=== PATIENT | female | born 1990 | race African-American/Black ===

== ENCOUNTER 2016-12-01 09:16 | Day surgery (SDC) | payer OTHER ==
[2016-11-25 11:18] VITALS: BMI 39.4
--- NOTE | 2016-11-29 15:58 | HP ---
Admitting History and Physical - Primary Care Physician PCP: Alaina Cornell - Admission Chief Complaint: Left breast abscess History of Present Illness: 26 year old nulliparous female recurrent left breast abscess. She was admitted to [facility]. She declined I and D. and the abscess drained spontaneously. She was discharge home on oral antibiotics. She is diabetic. History Source: Patient Limitations to Obtaining History: No Limitations - Past Medical History Pulmonary: Yes: Asthma ...LMP: 11/05/16 ...LMP Comment: 11/05/15 ...: No Endocrine: Yes: Diabetes Mellitus - Past Surgical History Additional Past Surgical History: Mutiple I and D D and C - Smoking History Smoking history: Never smoked Have you smoked in the past 12 months: No - Alcohol/Substance Use Hx Alcohol Use: No Home Medications - Allergies Allergies/Adverse Reactions: Allergies Allergy/AdvReac Type Severity Reaction Status Date / Time Penicillins Allergy Severe RESPIRATORY Verified 11/25/16 11:19 DISTRESS piperacillin sodium AdvReac Severe Difficulty Verified 11/22/16 13:30 [From Zosyn] Breathing tazobactam sodium AdvReac Severe Difficulty Verified 11/22/16 13:30 [From Zosyn] Breathing - Home Medications Home Medications: Ambulatory Orders Insulin Sliding Scale [Novolog Vial Sliding Scale -] 1 vial SQ TIDAC #100 units 05/23/16 Insulin (Levemir) [Levemir Vial] 20 unit SQ HS #0 11/10/16 Family Disease History - Family Disease History Family Disease History: Diabetes: Grandparent (Breast ca 70), Mother Physical Examination Constitutional: Yes: Well Nourished, No Distress Breast(s): Yes: Other (Letf breast small closed wound in imframmary crease no drainage or erythema) Problem List - Problems (1) Abscess of breast Code(s): N61 - INFLAMMATORY DISORDERS OF BREAST * DO NOT USE * Assessment/Plan Incision and drainage and debridement left breast
[2016-12-01] MEDS ORDERED: LIDOCAINE HCL 1%, 10 MG/ML (20ML VIAL) ONE (10:33)
[2016-12-01] MEDS ORDERED: PROPOFOL 20 ML ONE (10:53)
[2016-12-01] MEDS ORDERED: MIDAZOLAM HCL 2 MG/2 ML SINGLE DOSE VIAL ONE (10:53)
[2016-12-01] MEDS ORDERED: LIDOCAINE HCL/PF 2% SDV 5ML VIAL ONE (10:54)
[2016-12-01] MEDS ORDERED: ONDANSETRON 4 MG/2 ML VIAL IVPB PRN (11:04)
[2016-12-01] MEDS ORDERED: KETOROLAC TROMETHAMINE 30 MG/1 ML VIAL IVPUSH PRN (11:04)
[2016-12-01] MEDS ORDERED: DEXTROSE 5%-0.45% SALINE 1,000 ML IV SCH (11:15)
[2016-12-01] MEDS ORDERED: SUCCINYLCHOLINE CHLORIDE 200 MG/10 ML VIAL ONE (11:19)
[2016-12-01] MEDS ORDERED: ROCURONIUM BROMIDE 50 MG/5 ML VIAL ONE (11:19)
[2016-12-01] MEDS ORDERED: CLINDAMYCIN PHOSPHATE 600 MG/4 ML VIAL ONE (11:30)
[2016-12-01] MEDS ORDERED: DEXAMETHASONE SOD PHOSPHATE 4 MG/1 ML VIAL ONE (11:33)
[2016-12-01] MEDS ORDERED: LIDOCAINE HCL 1%, 10 MG/ML (20ML VIAL) IJ ONE (11:45)
[2016-12-01] MEDS ORDERED: ALBUTEROL SO4 0.083% IH SOL 2.5 MG/3 ML VIAL.NEB. NEB PRN (12:05)
[2016-12-01] MEDS ORDERED: LACTATED RINGERS SOLUTION 1,000 ML IV SCH (12:15)
[2016-12-01] MEDS ORDERED: INSULIN REGULAR HUMAN 100 UNITS/ML *VIAL SQ ONE (12:54)
[2016-12-01] MEDS ORDERED: PROMETHAZINE HCL 25 MG/1 ML VIAL IVPUSH PRN (13:18)
[2016-12-01] MEDS ORDERED: ONDANSETRON 4 MG/2 ML VIAL IVPUSH PRN (13:18)
[2016-12-01 14:36] VITALS: TEMP 98.7
[2016-12-01 14:42] VITALS: BP 116/67; PULSE 86
--- NOTE | 2016-12-01 17:03 | OP ---
DATE OF OPERATION: 12/01/2016 PREOPERATIVE DIAGNOSIS: Left breast abscess. POSTOPERATIVE DIAGNOSIS: Left breast abscess. PROCEDURE: Incision and debridement of left breast abscess. SURGEON: Luca Corenll M.D. WASH WORKER: None. ANESTHESIA: General. SPECIMEN: Wound culture. ESTIMATED BLOOD LOSS: Minimal. INDICATION FOR PROCEDURE: The patient is a 26-year-old female with a history of diabetes. She has had multiple incision and drainages of a left breast abscess at the inframammary crease. The patient has had recurrences within the last couple of months of the abscess but has refused incision and drainage due to discomfort. She is going to the operating room for incision and debridement of the inflammatory tissue to allow for better wound care. PROCEDURE: The patient was identified in the holding area. Informed consent was obtained. She was taken to the operating room and placed on the operating table in the supine position. She received clindamycin prior to surgery. She was intubated. The left breast was prepped and draped in the usual fashion. Examination of the left breast showed a wound at the inframammary crease which was partially closed. This wound was opened, and a 1-cm deep cavity was identified. There was a small amount of purulent drainage at the opening, but the wound was mostly clean. There was some granulation tissue in the wound which was debrided. This tissue was friable. The bleeding was controlled with electrocautery. A wound culture was sent upon opening the wound. The wound was irrigated. The wound was packed with half inch iodoform packing. A gauze dressing was applied. The patient tolerated the procedure well. At the end of the procedure, all sponge and instrument counts were correct. She was awakened and taken to the recovery area in satisfactory condition. LUCA CORNELL M.D. [id number] [email or web address]
== END 2016-12-01 14:44 | disposition home or self-care (01) ==
LOC: FASU 09:16
PROVIDERS: ATTEND Surgery
PROC: 0H9U0ZX Drainage of Left Breast, Open Approach, Diagnostic (ICD-10-PCS; principal; 2016-12-01 11:35)
DX: N61.1 Abscess of the breast and nipple (principal)
CPT/HCPCS: 84703; 87070; 87186; 87205; 94760

== ENCOUNTER 2016-12-27 12:28 | Emergency (ER) | payer OTHER ==
[2016-12-27 12:48] VITALS: BMI 39.4
[2016-12-27] MEDS ORDERED: SODIUM CHLORIDE 1,000 ML IV STA (13:42)
[2016-12-27] MEDS ORDERED: morphine CARPU-JECT 2 MG/1 ML DISP.SYRIN IVPUSH ONE ×2 (13:45→17:51)
--- NOTE | 2016-12-27 14:13 | PDOC ---
History of Present Illness - General Chief Complaint: Abscess Boil Stated Complaint: NECK PAIN Time Seen by Provider: 12/27/16 12:58 History Source: Patient Exam Limitations: No Limitations - History of Present Illness Initial Comments: 12/27/16 14:04 26-year-old female presents to the ED with complaints of tenderness swelling and difficulty moving her neck secondary to a lump to the back of her left neck. Patient states has had this before and responded to surgical removal of cyst and antibiotics. Patient states recently had a cyst removed from her left breast by the breast surgeon 3 weeks ago and completed antibiotics postoperatively. Patient denies fever, chills, headache, nausea but states has difficulty with eating and moving her neck secondary to pain and swelling. Patient states his history of diabetes which he states was high yesterday and didn't give us up in since since she had no appetite to eat. Severity: moderate Associated Symptoms: reports: fever/chills Past History - Past Medical History Allergies/Adverse Reactions: Allergies Allergy/AdvReac Type Severity Reaction Status Date / Time Penicillins Allergy Severe RESPIRATORY Verified 12/27/16 12:44 DISTRESS piperacillin sodium AdvReac Severe Difficulty Verified 12/27/16 12:44 [From Zosyn] Breathing tazobactam sodium AdvReac Severe Difficulty Verified 12/27/16 12:44 [From Zosyn] Breathing Home Medications: Ambulatory Orders Insulin Sliding Scale [Novolog Vial Sliding Scale -] 1 vial SQ TIDAC #100 units 05/23/16 Insulin (Levemir) [Levemir Vial] 20 unit SQ HS #0 11/10/16 Clindamycin [Cleocin -] 300 mg PO TID #21 capsule 12/27/16 Anemia: No Asthma: Yes (DX CHILD-STABLE) Cancer: No Cardiac Disorders: No CVA: No COPD: No CHF: No Dementia: No Diabetes: Yes (INSULIN- DX 2007) GI Disorders: No Disorders: No HTN: No Hypercholesterolemia: No Liver Disease: No Seizures: No Thyroid Disease: No - Surgical History Abdominal Surgery: No Appendectomy: No Cardiac Surgery: No Cholecystectomy: No Lung Surgery: No Neurologic Surgery: No Orthopedic Surgery: No - Reproductive History LMP Normal: Yes Is Patient Now?: No - Immunization History Immunization Up to Date: Yes - Psycho/Social/Smoking Cessation Hx Anxiety: No Suicidal Ideation: No Smoking History: Never smoked Have you smoked in the past 12 months: No Information on smoking cessation initiated: No Hx Alcohol Use: No Drug/Substance Use Hx: No Substance Use Type: None Hx Substance Use Treatment: No Patient Lives Alone: No Lives with/in: parents Review of Systems - Review of Systems HEENTM: No: Symptoms Reported Respiratory: No: Symptoms reported Cardiac (ROS): No: Symptoms Reported ABD/GI: No: Symptoms Reported : No: Symptoms Reported Musculoskeletal: Yes: Neck Pain Integumentary: Yes: Erythema, Lumps Neurological: No: Symptoms reported Endocrine: No: Symptoms Reported Hematologic/Lymphatic: No: Symptoms Reported *Physical Exam - Vital Signs Last Vital Signs Temp Pulse Resp BP Pulse Ox 98.1 F 96 H 18 126/76 100 12/27/16 12:45 12/27/16 12:45 12/27/16 12:45 12/27/16 12:45 12/27/16 12:45 - Physical Exam General Appearance: Yes: Nourished, Appropriately Dressed. No: Apparent Distress HEENT: positive: EOMI, SAGAR, TMs Normal, Pharynx Normal. negative: Pale Conjunctivae Neck: positive: Tender (to left posterior nape of neck. Noted diffuse edema without palpable fluctulance or central induration), Trachea midline, Supple. negative: Lymphadenopathy (R), Lymphadenopathy (L) Respiratory/Chest: positive: Lungs Clear, Normal Breath Sounds. negative: Respiratory Distress, Accessory Muscle Use Cardiovascular: positive: Regular Rhythm, Regular Rate. negative: Murmur Gastrointestinal/Abdominal: positive: Soft. negative: Tenderness Extremity: positive: Normal Capillary Refill Integumentary: positive: Normal Color, Warm, Moist, Swelling (left posterior cervical region) Neurologic: positive: Motor Strength 5/5 (ambulatory ) ED Treatment Course - LABORATORY CBC & Chemistry Diagram: 12/27/16 13:46 12/27/16 13:46 Medical Decision Making - Medical Decision Making 12/27/16 14:19 Patient with history of diabetes presents with left cervical tenderness swelling and lump for the past few days. Patient states has had similar symptoms in the past requiring surgical excision and IV antibiotics. Patient states has history of abscesses to very aspects of her body over the years. Patient ordered for septic workup including acetone and Morphine for pain control. Patient ordered for urine and will need imaging 12/27/16 17:52 Laboratory Tests 12/27/16 12/27/16 14:30 15:56 Lactic Acid 1.105 Acetone, Qual Negative L 12/27/16 17:53 Laboratory Tests 12/27/16 12/27/16 12/27/16 13:46 13:46 13:46 WBC 11.0 H Hgb 12.2 Hct 38.5 MCV 69.5 L Plt Count 263 INR 1.03 VBG pH POC VBG pCO2 POC VBG pO2 Anion Gap 12 Creatinine 0.5 L Creat Clearance w eGFR > 60 Random Glucose 288 H AST 16 D ALT 21 Urine Glucose (UA) Urine Ketones Urine Nitrite Urine HCG, Qual Acetone, Qual 12/27/16 12/27/16 12/27/16 14:00 14:30 15:05 WBC Hgb Hct MCV Plt Count INR VBG pH 7.36 POC VBG pCO2 45.7 POC VBG pO2 43.3 H Anion Gap Creatinine Creat Clearance w eGFR Random Glucose AST ALT Urine Glucose (UA) 3+ H Urine Ketones Trace H Urine Nitrite Negative Urine HCG, Qual Acetone, Qual Negative L 12/27/16 15:05 WBC Hgb Hct MCV Plt Count INR VBG pH POC VBG pCO2 POC VBG pO2 Anion Gap Creatinine Creat Clearance w eGFR Random Glucose AST ALT Urine Glucose (UA) Urine Ketones Urine Nitrite Urine HCG, Qual Negative Acetone, Qual Awaiting results of CT. Patient requesting more pain control. Patient ordered for morphine. 12/27/16 18:29 CT shows a soft tissue swelling the left posterior upper neck with skin thickening and a 1.5 low attenuation density in the subcutaneous fat that is very suggestive of a small abscess. Patient will be given a dose of IV clindamycin and be discharged home with clindamycin to follow-up with Dr. Ceron. *DC/Admit/Observation/Transfer Diagnosis at time of Disposition: Abscess - Discharge Dispostion Disposition: HOME Condition at time of disposition: Good - Prescriptions Prescriptions: Clindamycin [Cleocin -] 300 mg PO TID #21 capsule - Referrals Referrals: Steven Luna MD [Primary Care Provider] - Xiang Ceron MD [Staff Physician] - - Patient Instructions Printed Discharge Instructions: DI for Skin Abscess Additional Instructions: please take antibiotics until completed. Please follow up with referred surgeon. Please return to ED if your symptoms worsen including redness tenderness, fever , or swelling.
[2016-12-27 14:18] LABS: VENOUS PH 7.36 (7.31-7.41)
[2016-12-27] MEDS ORDERED: morphine CARPU-JECT 4 MG/1 ML DISP.SYRIN ONE ×2 (14:18→17:55)
[2016-12-27 14:19] LABS: VENOUS BLOOD GAS HCO3 24.9 meq/L (22-29)
[2016-12-27 14:44] LABS: BASOPHIL 0.4 % (0-2.0); EOSINOPHIL 1.1 % (0-4.5); MCH 22.1 pg (25.7-33.7); MCHC 31.8 g/dl (32.0-36.0); MEAN CELL VOLUME 69.5 fl (80-96); MEAN PLT VOLUME 9.1 fl (7.5-11.1); NEUTROPHILS 55.8 % (42.8-82.8); PLATELET COUNT 263 K/MM3 (134-434); RDW 15.4 % (11.6-15.6)
[2016-12-27 14:56] LABS: INR 1.03 (0.82-1.09); PROTHROMBIN TIME (PATIENT) 11.3 SEC (9.98-11.88)
[2016-12-27 15:15] LABS: URINE APPEARANCE CLEAR; URINE BILIRUBIN NEGATIVE (NEGATIVE); URINE BLOOD NEGATIVE (NEGATIVE); URINE COLOR STRAW; URINE GLUCOSE (UA) 3+ (NEGATIVE); URINE KETONE TRACE (NEGATIVE); URINE LEUK ESTERASE NEGATIVE (NEGATIVE); URINE NITRITE NEGATIVE (NEGATIVE); URINE PROTEIN NEGATIVE (NEGATIVE); URINE UROBILINOGEN NEGATIVE E.U./dl (0.2-1.0)
[2016-12-27 15:16] LABS: ALBUMIN 3.8 g/dl (3.4-5.0); ALK PHOS 83 U/L (45-117); ANION GAP 12 (8-16); BILIRUBIN,TOTAL 0.3 mg/dL (0.2-1.0); CALCIUM 9.2 mg/dL (8.5-10.1); CO2 24 mmol/L (21-32); CREATININE 0.5 mg/dL (0.55-1.02); GLUCOSE,RANDOM 288 mg/dL (74-106); SGPT/ALT 21 U/L (12-78); TOT PROT 7.7 g/dl (6.4-8.2)
[2016-12-27 15:17] LABS: SGOT/AST 16 U/L (15-37)
[2016-12-27 18:25] LABS: HYPOCHROMIA 1+; MICROCYTOSIS 1+
[2016-12-27] MEDS ORDERED: CLINDAMYCIN IVPB 300 MG in DEXTROSE 5%-WATER - 48 ML IVPB ONE (18:28)
[2016-12-27 18:50] VITALS: BP 122/63; PULSE 88; TEMP 98.4
[2016-12-27] MEDS ORDERED: CLINDAMYCIN PHOSPHATE 600 MG/4 ML VIAL ONE (18:54)
== END 2016-12-27 19:41 | disposition home or self-care (01) ==
LOC: JER 12:28
PROC: 3E03329 Introduction of Other Anti-infective into Peripheral Vein, Percutaneous Approach (ICD-10-PCS; principal; 2016-12-27)
PROC: 3E033NZ Introduction of Analgesics, Hypnotics, Sedatives into Peripheral Vein, Percutaneous Approach (ICD-10-PCS; 2016-12-27)
PROC: 3E0337Z Introduction of Electrolytic and Water Balance Substance into Peripheral Vein, Percutaneous Approach (ICD-10-PCS; 2016-12-27)
DX: L02.11 Cutaneous abscess of neck (principal); E11.9 Type 2 diabetes mellitus without complications; Z79.4 Long term (current) use of insulin
CPT/HCPCS: 36415; 70491-TC; 80053; 81003; 82009; 82803; 83605; 84703; 85025; 85610; 86850; 86900; 86901; 87040; 87086; 96361; 96365; 96375; 96376; 99283-25

== ENCOUNTER 2019-03-07 21:07 | Inpatient (IN) | payer OTHER ==
--- NOTE | 2019-03-07 21:13 | PDOC ---
Attending Attestation - HPI HPI: The patient is a 28 year old female, with a significant PMH of seizure disorder (last episode was 2 months ago) asthma, IDDM, multiple abscesses, and obesity, who presents to the emergency department today BIBEMS s/p multiple seizures and altered mental status prior to arrival. As per EMS, patient had a total of 8 seizures and all were tonic clonic, jerking all extremities, without any tongue biting or urinary incontinence. They report that she was given 10 mg of versed and was postictal. Patient works at [employer], where her witnesses epileptic episodes occurred. She endorses a headache, cough, and chest discomfort at this time. Patient cannot recall if she took her daily medications this morning. As patients aunt (next of kin), she notes that she was on the phone with the patient ~1.5 hours ago, and at that time she was complaining of her heart speeding up and slowing down. Patient also told her aunt that she had a seizure the night before because she woke up with blood in her mouth and felt more tired than normal. The patient denies shortness of breath and dizziness. Denies fever, chills, nausea, vomit, diarrhea and constipation. Denies dysuria, frequency, urgency and hematuria. Allergies: Penicillin, piperacillin sodium, and tazobactam sodium Past surgical history: None reported Social history: No reported Neurologist: Dr. Viv Lynn Epilepsy meds- Levatracin 750 mg twice daily (last refilled on 02/24) 03/07/19 21:57 - Physicial Exam PE: GENERAL: +Arrives foaming at this mouth. +Postictal. HEAD: No signs of trauma EYES: +Pupils are 3 times reactive. EOMI, sclera anicteric, conjunctiva clear ENT: +No tongue biting. Auricles normal inspection, hearing grossly normal, nares patent, oropharynx clear without exudates. Moist mucosa NECK: Normal ROM, supple, no lymphadenopathy, JVD, or masses LUNGS: Breath sounds equal, clear to auscultation bilaterally. No wheezes, and no crackles HEART: Regular rate and rhythm, normal S1 and S2, no murmurs, rubs or gallops ABDOMEN: Soft, nontender, normoactive bowel sounds. No guarding, no rebound. No masses EXTREMITIES: Normal range of motion, no edema. No clubbing or cyanosis. No cords, erythema, or tenderness NEUROLOGICAL: Cranial nerves II through XII grossly intact. Normal speech, normal gait SKIN: Warm, Dry, normal turgor, no rashes or lesions noted. 03/07/19 21:57 - Medical Decision Making EXAM#: TYPE/EXAM: RESULT: [id number] RAD/CHEST X-RAY PORTABLE* Shortness of breath structures appear intact Impression: Minimal bibasal atelectatic changes without evidence of focal infiltrates Reported By: Bertha Guevara MD 03/07/19 22:53 EXAM#: TYPE/EXAM: RESULT: [id number] CT/HEAD CT WITHOUT CONTRAST History of seizures Impression: No evidence of a focal intracranial lesion or hemorrhage seen. Correlate to determine further evaluation and follow-up. Reported By: Bertha Guevara MD 03/07/19 23:03 Documentation prepared by MARCUS Wilde, acting as medical support assistant for Joie Naidu DO. 03/07/19 23:22 <Brooke Luna - Last Filed: 03/07/19 23:22> - Resident Resident Name: Marcus Henley - ED Attending Attestation I have performed the following: I have examined & evaluated the patient, The case was reviewed & discussed with the resident, I agree w/resident's findings & plan, Exceptions are as noted - Medical Decision Making 03/07/19 21:13 I, Dr. Joie Naidu DO, attest that this document has been prepared under my direction and personally reviewed by me in its entirety. I further attest, that it accurately reflects all work, treatment, procedures and medical decision -making performed by me. 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 -pt arrived post-ictal but follows commands -pt also with hx of iddm -stat labs sent -head ct ordered given multiple seizures today -pt denies falls -resident discussed the case with the next of kin who states pt also c/o having a seizure last night -does not follow with neuro -unknown if on AED -pt will need admission 03/07/19 22:56 elevated lactate most likley from seizure, will repeat cxr shows early pna- will start abx will add blood cultures keppra loaded 03/07/19 23:39 case discussed with hunter who accepts pt to service <Joie Naidu - Last Filed: 03/07/19 23:40> *DC/Admit/Observation/Transfer - Discharge Dispostion Decision to Admit order: Yes <Joie Naidu - Last Filed: 03/07/19 23:40> Diagnosis at time of Disposition: Convulsion disorder, Status epilepticus - Discharge Dispostion Condition at time of disposition: Guarded - Referrals Referrals: Panchito Butler MD [Staff Physician] - - Patient Instructions Printed Discharge Instructions: DI for Seizure Disorder -- Adult Additional Instructions: Please return to the emergency department with any new or worsening symptoms or concerns. Please follow up with your neurologist and primary care physician within 72 hours. Continue to take Keppra 1500 mg daily. - Post Discharge Activity Heart Score/ECG Review - ECG Intrepretation Comment:: 03/07/19 23:15 sinus at 86, nl axis, nl interval, no acute st/t wave findings <Joie Naidu - Last Filed: 03/07/19 23:40>
[2019-03-07 21:30] LABS: BASO % 0.8 % (0-2.0); EOS % 1.4 % (0-4.5); HEMATOCRIT 40.1 % (32.4-45.2); HEMOGLOBIN 12.7 GM/dL (10.7-15.3); LYMPH % 39.2 % (8-40); MCH 22.3 pg (25.7-33.7); MCHC 31.6 g/dl (32.0-36.0); MEAN CELL VOLUME 70.4 fl (80-96); MEAN PLT VOLUME 8.5 fl (7.5-11.1); MONO % 6.6 % (3.8-10.2); PLATELET COUNT 318 K/MM3 (134-434); RDW 15.6 % (11.6-15.6); VENOUS PC02 41.4 mmHg (41-51); VENOUS PH 7.4 (7.31-7.41); VENOUS PO2 58.8 mmHg (30-40); WHITE BLOOD COUNT 11.3 K/mm3 (4.0-10.0)
--- NOTE | 2019-03-07 21:37 | PDOC ---
History of Present Illness - General Stated Complaint: SEIZURE Time Seen by Provider: 03/07/19 21:09 - History of Present Illness Initial Comments: 03/07/19 21:32 28 yo F with h/o IDDM, morbid obesity, seizure disorder, and asthma BIBA with witnessed convulsions and AMS. Per EMS patient with 8 episodes of widespread tonic-clonic jerking movements of all four extremities, en route to hospital. EMS administered Versed 10 mg IM. Per patient Aunt ([place] [phone]) patient reported to her on phone that she was experiencing episodes of acute, frequent heart speeding up and slowing down, while at work "[employer]. " She also reports to aunt that she woke up this AM with blood in mouth. She believes she had seizure last night. Last seizure 2 months ago. Neurologist unknown. Patient reports she is on anticonvulsive medication ( Keppra 1500 mg QD ), and compliant with all daily meds. Viv Lynn prescribes patient Keppra. Patient reports ongoing cough, chest tightness per aunt. Patient poor historian , able to provide yes/no responses, but not providing adequate history. Patient does not recall falling, head trauma, LOC. Patient denies MORGAN, vision change, wheezing, orthopena, PND, leg swelling/pain, N /V, F,C, SOB, urinary complaints, hematuria, BPR, abdominal pain, diarrhea, constipation, lightheadedness, sensory changes. PMHx: as noted above. Denies h/o ICU admission. ROS: as noted SHx: Betty Etoh, tobacco use, IVDA Allergies: PDN, Zosyn Past History - Past Medical History Allergies/Adverse Reactions: Allergies Allergy/AdvReac Type Severity Reaction Status Date / Time Penicillins Allergy Severe RESPIRATORY Verified 12/29/16 09:44 DISTRESS piperacillin sodium AdvReac Severe Difficulty Verified 12/29/16 09:44 [From Zosyn] Breathing tazobactam sodium AdvReac Severe Difficulty Verified 12/29/16 09:44 [From Zosyn] Breathing Home Medications: Ambulatory Orders Insulin (Novolog) [Novolog] 10 units SQ BID 03/08/19 Insulin Detemir [Levemir Flextouch] 10 unit SQ HS #1 vial 03/08/19 Metformin HCl [Metformin HCl ER] 1,000 mg PO BID 03/08/19 levETIRAcetam [Keppra -] 1,500 mg PO Q12H 30 Days #180 tablet 03/08/19 Anemia: No Asthma: Yes (DX CHILD-STABLE) Cancer: No Cardiac Disorders: No CVA: No COPD: No CHF: No Dementia: No Diabetes: Yes (INSULIN- DX 2007) GI Disorders: No Disorders: No HTN: No Hypercholesterolemia: No Liver Disease: No Seizures: No Thyroid Disease: No - Surgical History Abdominal Surgery: No Appendectomy: No Cardiac Surgery: No Cholecystectomy: No Lung Surgery: No Neurologic Surgery: No Orthopedic Surgery: No - Immunization History Immunization Up to Date: Yes (NO FLU) - Suicide/Smoking/Psychosocial Hx Smoking History: Never smoked Have you smoked in the past 12 months: No Hx Alcohol Use: No Drug/Substance Use Hx: No Substance Use Type: None Hx Substance Use Treatment: No Review of Systems - Review of Systems Comments:: 03/07/19 21:55 GENERAL/CONSTITUTIONAL: No fever or chills. No weakness. HEAD, EYES, EARS, NOSE AND THROAT: No change in vision. No ear pain or discharge. No sore throat. CARDIOVASCULAR: No shortness of breath RESPIRATORY:+cough. No wheezing, or hemoptysis. GASTROINTESTINAL: No nausea, vomiting, diarrhea or constipation. GENITOURINARY: No dysuria, frequency, or change in urination. MUSCULOSKELETAL: No joint or muscle swelling or pain. No neck or back pain. SKIN: No rash NEUROLOGIC: + Convulsions. No headache, vertigo, loss of consciousness, or change in strength/sensation. ENDOCRINE: No increased thirst. No abnormal weight change HEMATOLOGIC/LYMPHATIC: No anemia, easy bleeding, or history of blood clots. ALLERGIC/IMMUNOLOGIC: No hives or skin allergy. *Physical Exam - Physical Exam Comments: 03/07/19 22:05 GENERAL: + fatigued, able to follow commands, verbal, awake, alert, and fully oriented, in no acute distress. HEAD: No signs of trauma, normocephalic, atraumatic EYES: PERRLA, EOMI, sclera anicteric, conjunctiva clear ENT: Auricles normal inspection, hearing grossly normal, nares patent, oropharynx clear without exudates. Moist mucosa NECK: Normal ROM, supple, no lymphadenopathy, JVD, or masses LUNGS: No distress, speaks full sentences, clear to auscultation bilaterally HEART: Regular rate and rhythm, normal S1 and S2, no murmurs, rubs or gallops, peripheral pulses normal and equal bilaterally. ABDOMEN: Soft, nontender, normoactive bowel sounds. No guarding, no rebound. No masses EXTREMITIES : Normal inspection, Normal range of motion, no edema. No clubbing or cyanosis. NEUROLOGICAL: Cranial nerves II through XII grossly intact. Normal speech, normal gait, no focal sensorimotor deficits SKIN: Warm, Dry, normal turgor, no rashes or lesions noted ED Treatment Course - LABORATORY CBC & Chemistry Diagram: 03/08/19 05:15 03/08/19 05:15 Medical Decision Making - Medical Decision Making 03/07/19 21:55 28 yo F with h/o IDDM, morbid obesity, seizure disorder, and asthma BIBA with witnessed tonic-clonic convulsions x 8 and AMS. Vitals wnl, AF, A&Ox3. GCS 15. GLU~376 per EMS. Verbal, communicative. Vitals wnl, AF, A&Ox3. Neurologically intact. Patient on daily Keppra 1500 mg. Denies N/V, F,C, SOB, urinary complaints, hematuria, BPR, abdominal pain, diarrhea, constipation, lightheadedness, sensory changes. Will assess for cardiac dysarrythmias, hypoglycemia, electrolyte abnml, metabolic and toxic derangements, acid-base disturbances, infection. 03/07/19 22:15 Ed Course: Keppra 1000 mg, NS 2 L 03/07/19 22:35 WBC: 11.3 LA: 3.5 GLU: 306 03/07/19 22:57 Doxycyline 100mg 03/07/19 22:57 CXR: Bibasilar ateletcatic changes 03/07/19 23:12 CTH: Unremarkable 03/07/19 23:12 Plan to admit status epilepticus 03/07/19 23:15 EKG: NSR with absent NOEMI, STD. Nml interval duration and axis. Nml R wave progression. Absent Q waves. 03/07/19 23:41 Pt. endorsed and admitted to Dr. Purdy *DC/Admit/Observation/Transfer Diagnosis at time of Disposition: Convulsion disorder, Status epilepticus - Discharge Dispostion Disposition: HOME Condition at time of disposition: Stable Decision to Admit order: Yes - Referrals - Patient Instructions - Post Discharge Activity
[2019-03-07] MEDS ORDERED: SODIUM CHLORIDE 1,000 ML IV STA (21:39)
[2019-03-07] MEDS ORDERED: levETIRAcetam 500 MG/5 ML INJECTION VIAL IVPB ONE ×2 (21:40→21:47)
[2019-03-07 21:42] VITALS: BMI 36.6
[2019-03-07 21:44] LABS: INR 0.97 (0.83-1.09); PROTHROMBIN TIME (PATIENT) 11.5 SEC (9.7-13.0)
[2019-03-07 22:31] LABS: ALK PHOS 81 U/L (45-117); ANION GAP 10 MMOL/L (8-16); BILIRUBIN,TOTAL 0.3 mg/dL (0.2-1); BLOOD UREA NITROGEN 9 mg/dL (7-18); CALCIUM 9.4 mg/dL (8.5-10.1); CHLORIDE 101 mmol/L (98-107); CO2 25 mmol/L (21-32); CREATININE 0.7 mg/dL (0.55-1.3); MAGNESIUM 2.2 mg/dL (1.8-2.4); POTASSIUM 4.3 mmol/L (3.5-5.1); SGOT/AST 13 U/L (15-37); SGPT/ALT 24 U/L (13-61); SODIUM 136 mmol/L (136-145); TOT PROT 8.1 g/dl (6.4-8.2)
[2019-03-07 22:35] LABS: GLUCOSE,RANDOM 302 mg/dL (74-106)
[2019-03-07] MEDS ORDERED: DOXYCYCLINE INJECTION 100 MG in DEXTROSE 5%-WATER - 100 ML IVPB ONE (22:56)
[2019-03-07 22:58] LABS: ACETONE SERUM NEGATIVE (NEGATIVE)
--- NOTE | 2019-03-08 00:10 | HP ---
CHIEF COMPLAINT: seizures PCP: HISTORY OF PRESENT ILLNESS: Patient is a 28 y/o F w/ PMHx IDDM, morbid obesity, Sz disorder, asthma, BIBEMS w/ 8 witnessed tonic-clonic episodes. Reportedly Pt feared she may have been seizing overnight as well, told family member she awoke with blood in her mouth 2/2 tongue biting. Received 10mg Versed in field which broke seizures. Patient was post-ictal on presentation, lethargic but arousable, no recall of above events and not able to provide further history. Mildly photosensitive with mild headache, otherwise no complaints at time of encounter. Takes Keppra 1500 daily and reportedly compliant. Received loading dose Keppra, 1LNS, doxycycline for concern of aspiration in ED. Keppra level was not drawn. On presentation vitals are stable. EKG NSR. Labs significant for WBC 11.3, glucose 302, lactic acid 3.5 , otherwise wnl. Head CT negative, CXR showing bibasilar atelectasis w/o focal infiltrates ER course was notable for: (1) mild leukocytosis, hyperglycemia, lactic acidosis (2) Head CT negative (3) loading dose Keppra Recent Travel: PAST MEDICAL HISTORY: As per HPI PAST SURGICAL HISTORY: Social History: Smoking: Alcohol: Drugs: Family History: Allergies Penicillins Allergy (Severe, Verified 12/29/16 09:44) RESPIRATORY DISTRESS piperacillin sodium [From Zosyn] Adverse Reaction (Severe, Verified 12/29/16 09: 44) Difficulty Breathing ANAPHYLACTIC SHOCK tazobactam sodium [From Zosyn] Adverse Reaction (Severe, Verified 12/29/16 09:44 ) Difficulty Breathing ANAPHYLACTIC SHOCK HOME MEDICATIONS: Home Medications Medication Instructions Recorded Insulin Sliding Scale [Novolog 1 vial SQ TIDAC #100 units 05/23/16 Vial Sliding Scale -] Clindamycin [Cleocin -] 300 mg PO Q6HPO #25 capsule 01/03/17 Insulin (Levemir) [Levemir Vial] 18 units SQ ACBK #10 ml 01/03/17 Insulin (Levemir) [Levemir Vial] 24 units SQ HS #10 ml 01/03/17 REVIEW OF SYSTEMS As per HPI PHYSICAL EXAMINATION Vital Signs - 24 hr 03/07/19 21:08 Temperature 98.5 F Pulse Rate 88 Respiratory 19 Rate Blood Pressure 114/76 O2 Sat by Pulse 100 Oximetry (%) GENERAL: Lethargic, arousable, fully oriented, no recall of inciting events HEENT: NC/AT, EOMI, PERRLA, MMM, anicteric NECK: Normal range of motion, supple without lymphadenopathy, JVD, or masses. LUNGS: CTA b/l HEART: RRR no m/r/g ABDOMEN: +bs, soft, NT, ND, obese UPPER EXTREMITIES: 2+ pulses, warm, well-perfused. No cyanosis. No clubbing. No peripheral edema. LOWER EXTREMITIES: 2+ pulses, warm, well-perfused. No calf tenderness. No peripheral edema. 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 Laboratory Results - last 24 hr 03/07/19 03/07/19 03/07/19 21:17 21:17 21:17 WBC 11.3 H RBC 5.70 H Hgb 12.7 Hct 40.1 MCV 70.4 L MCH 22.3 L MCHC 31.6 L RDW 15.6 Plt Count 318 MPV 8.5 Absolute Neuts (auto) 5.9 Neutrophils % 52.0 Lymphocytes % 39.2 D Monocytes % 6.6 Eosinophils % 1.4 Basophils % 0.8 Nucleated RBC % 0 PT with INR INR PTT (Actin FS) 32.0 VBG pH 7.40 POC VBG pCO2 41.4 POC VBG pO2 58.8 H VBG HCO3 24.8 VBG O2 Sat (Delmy) 89.6 H VBG Base Excess 0.4 Sodium Potassium Chloride Carbon Dioxide Anion Gap BUN Creatinine Creat Clearance w eGFR POC Glucometer Random Glucose Lactic Acid Calcium Magnesium Total Bilirubin AST ALT Alkaline Phosphatase Creatine Kinase Creatine Kinase Index CK-MB (CK-2) Troponin I Total Protein Albumin TSH Serum , Qual Acetone, Qual 03/07/19 03/07/19 03/07/19 21:17 21:17 21:17 WBC RBC Hgb Hct MCV MCH MCHC RDW Plt Count MPV Absolute Neuts (auto) Neutrophils % Lymphocytes % Monocytes % Eosinophils % Basophils % Nucleated RBC % PT with INR 11.50 INR 0.97 PTT (Actin FS) VBG pH POC VBG pCO2 POC VBG pO2 VBG HCO3 VBG O2 Sat (Delmy) VBG Base Excess Sodium 136 Potassium 4.3 Chloride 101 Carbon Dioxide 25 Anion Gap 10 BUN 9 Creatinine 0.7 Creat Clearance w eGFR 99.64 POC Glucometer Random Glucose 302 H* Lactic Acid 3.5 H* Calcium 9.4 Magnesium 2.2 Total Bilirubin 0.3 AST 13 L ALT 24 Alkaline Phosphatase 81 Creatine Kinase 156 Creatine Kinase Index 0.8 CK-MB (CK-2) 1.4 Troponin I < 0.02 Total Protein 8.1 Albumin 4.0 TSH 1.98 Serum , Qual Acetone, Qual Negative L 03/07/19 03/07/19 21:17 21:30 WBC RBC Hgb Hct MCV MCH MCHC RDW Plt Count MPV Absolute Neuts (auto) Neutrophils % Lymphocytes % Monocytes % Eosinophils % Basophils % Nucleated RBC % PT with INR INR PTT (Actin FS) VBG pH POC VBG pCO2 POC VBG pO2 VBG HCO3 VBG O2 Sat (Delmy) VBG Base Excess Sodium Potassium Chloride Carbon Dioxide Anion Gap BUN Creatinine Creat Clearance w eGFR POC Glucometer 306 Random Glucose Lactic Acid Calcium Magnesium Total Bilirubin AST ALT Alkaline Phosphatase Creatine Kinase Creatine Kinase Index CK-MB (CK-2) Troponin I Total Protein Albumin TSH Serum , Qual Negative Acetone, Qual ASSESSMENT/PLAN: 28 y/o F w/ PMHx IDDM, morbid obesity, Sz disorder, asthma, BIBEMS w/ 8 witnessed tonic-clonic episodes. Post-ictal on presentation. A: -seizure disorder w/ apparent breakthrough seizures -possible aspiration event -IDDM -asthma P: -HCT negative -lactic acidosis and hyperglycemia likely reactive -repeat lactic acid and follow BMP, Mg, Phos -neurology consulted -received loading dose Keppra, initial Keppra level is unobtainable -restarted home Keppra for AM -BGM, SSI -no further ABx at this time -NPO while post-ictal -no further IVF -Lovenox sq for DVT PPx -full code -admit to med/surg Visit type - Emergency Visit Emergency Visit: Yes Care time: The patient presented to the Emergency Department on the above date and was hospitalized for further evaluation of their emergent condition. - New Patient This patient is new to me today: Yes Date on this admission: 03/08/19 - Critical Care Critical Care patient: No
--- NOTE | 2019-03-08 01:19 | PN ---
Teaching Attending Note Name of Resident: Tony Villanueva ATTENDING PHYSICIAN STATEMENT I saw and evaluated the patient. I reviewed the resident's note and discussed the case with the resident. I agree with the resident's findings and plan as documented. SUBJECTIVE: Patient is a 28 year old woman with a PMH of seizure disorder (last episode was 2 months ago) asthma, IDDM, penicillin allergy, multiple abscesses, and obesity , who presents to the emergency department today BIBEMS s/p multiple seizures and altered mental status prior to arrival. As per EMS, patient had a total of 8 seizures and all were tonic clonic, jerking all extremities, without any tongue biting or urinary incontinence. They report that she was given 10 mg of versed and was postictal. Patient works at [employer], where her witnesses epileptic episodes occurred. She endorses a headache, cough, and chest discomfort at this time. Patient cannot recall if she took her daily medications this morning. As patients aunt (next of kin), she notes that she was on the phone with the patient ~1.5 hours ago, and at that time she was complaining of her heart speeding up and slowing down. Patient also told her aunt that she had a seizure the night before because she woke up with blood in her mouth and felt more tired than normal. The patient denies shortness of breath and dizziness. Denies fever, chills, nausea, vomit, diarrhea and constipation. Denies dysuria, frequency, urgency and hematuria. OBJECTIVE: Postictal. Somnolent but arousable Vital Signs Period Temp Pulse Resp BP Sys/Westfall Pulse Ox Last 24 Hr 98.5 F 88 19 114/76 100 HEENT: No Jaundice, eye redness or discharge, PERRLA, EOMI. Normocephalic, atraumatic. External ears are normal and hearing is grossly intact. No nasal discharge. Neck: Supple, nontender. No palpable adenopathy or thyromegaly. No JVD Chest: Good effort. Clear to auscultation and percussion. Heart: Regular. No S3, rub or murmur Abdomen: Not distended, soft, nontender and no HSM. No rebound or guarding. Normal bowel sounds. Ext: Peripheral pulses intact. No leg edema. Skin: Warm and dry. No petechiae, rash or ecchymosis. Neuro: Alert. Oriented x3. CN 2-12 grossly intact. Sensation grossly intact in all four extremities and DTR are symmetric. Psych: Appropriate mood and affect. Good insight. Current Medications Generic Name Dose Route Start Last Admin Trade Name Mallory PRN Reason Stop Dose Admin Enoxaparin Sodium 40 mg 03/08/19 10:00 Lovenox - SQ DAILY [facility] Insulin Aspart 1 vial 03/08/19 07:00 Novolog Vial Sliding Scale - SQ ACHS [facility] Protocol Levetiracetam 750 mg 03/08/19 10:00 Keppra Xr - PO BID [facility] Home Medications Medication Instructions Recorded Insulin Sliding Scale [Novolog 1 vial SQ TIDAC #100 units 05/23/16 Vial Sliding Scale -] Insulin Glargine,Hum.rec.anlog 30 unit SQ AM 03/08/19 [Lantus] Levetiracetam [Keppra Xr] 750 mg PO BID 03/08/19 Metformin HCl [Metformin HCl ER] 1,000 mg PO BID 03/08/19 Abnormal Lab Results 03/07/19 03/07/19 03/07/19 21:17 21:17 21:17 WBC 11.3 H RBC 5.70 H MCV 70.4 L MCH 22.3 L MCHC 31.6 L POC VBG pO2 58.8 H VBG O2 Sat (Delmy) 89.6 H Random Glucose 302 H* Lactic Acid AST 13 L Acetone, Qual Negative L 03/07/19 21:17 WBC RBC MCV MCH MCHC POC VBG pO2 VBG O2 Sat (Delmy) Random Glucose Lactic Acid 3.5 H* AST Acetone, Qual ASSESSMENT AND PLAN: 1. Seizure disorder - No obvious precipitating factor. Leukocytosis likely due to stress. Unclear if Keppra level was therapeutic. Got 1 gm IV Keppra in the ER and will continue 750 po bid. Implement seizure, fall and aspiration precautions and do neurochecks. NPO until completely awake. Continue IV NS, trend lactic acid and repeat CBC. Minimal bibasilar atelectasis on CXR and no abnormality on head CT. Neurology consult. Get urine toxicology. 2. Uncontrolled DM Got IV insulin in ER. Will hold the home diabetes drugs and implement sliding scale insulin regimen. Provide comprehensive diabetes care with patient teaching and counseling about the importance of adherence to prescribed diabetes regimen, euglycemia, eye care and foot care. 3. Obesity Counseled on the risks associated with obesity. Will provide patient all the necessary assistance, counseling and positive reinforcement to facilitate weight loss. Consult flying instructor. 4. DVT prophylaxis - Lovenox 40 mg SQ q 24 hours. 5. Advance directives - Full code
[2019-03-08] MEDS ORDERED: SODIUM CHLORIDE 1,000 ML IV SCH (01:45)
[2019-03-08 04:22] LABS: PH,URINE 5.5 (5.0-8.0); URINE APPEARANCE Clear; URINE BILIRUBIN Negative (NEGATIVE); URINE COLOR Yellow; URINE GLUCOSE (UA) 2+ (NEGATIVE); URINE KETONE Trace (NEGATIVE); URINE LEUK ESTERASE Negative (NEGATIVE); URINE NITRITE Negative (NEGATIVE); URINE PROTEIN Negative (NEGATIVE)
[2019-03-08 04:54] LABS: COCAINE, UR NEGATIVE ng/ml (CUTOFF=300); METHADONE, UR NEGATIVE ng/ml (CUTOFF=300); OPIATES, URI NEGATIVE ng/ml (CUTOFF=300); PHENCYCLIDINE,URINE NEGATIVE ng/ml (CUTOFF=25); URINE AMPHETAMINES NEGATIVE ng/ml (CUTOFF=500); URINE BARBITURATES NEGATIVE ng/ml (CUTOFF=200)
[2019-03-08 04:57] LABS: URINE BENZODIAZEPINES POSITIVE ng/ml (CUTOFF=200)
[2019-03-08 05:21] LABS: EPI CELLS RARE /HPF (0-5/HPF); URINE RBC 15-20 /hpf (0-4)
[2019-03-08 05:52] LABS: BASO % 0.1 % (0-2.0); EOS % 1.8 % (0-4.5); HEMATOCRIT 35.4 % (32.4-45.2); HEMOGLOBIN 11.3 GM/dL (10.7-15.3); LYMPH % 48.2 % (8-40); MCH 22.5 pg (25.7-33.7); MEAN CELL VOLUME 70.3 fl (80-96); MEAN PLT VOLUME 8.2 fl (7.5-11.1); MONO % 7.8 % (3.8-10.2); NEUT % 42.1 % (42.8-82.8); PLATELET COUNT 260 K/MM3 (134-434); RBC 5.04 M/mm3 (3.60-5.2); RDW 15.6 % (11.6-15.6); WHITE BLOOD COUNT 9.3 K/mm3 (4.0-10.0)
[2019-03-08 06:13] LABS: ANION GAP 9 MMOL/L (8-16); BLOOD UREA NITROGEN 10 mg/dL (7-18); CALCIUM 8.5 mg/dL (8.5-10.1); CHLORIDE 106 mmol/L (98-107); CO2 25 mmol/L (21-32); CREATININE 0.5 mg/dL (0.55-1.3); GLUCOSE,RANDOM 254 mg/dL (74-106); MAGNESIUM 1.7 mg/dL (1.8-2.4); PHOSPHOROUS 4.3 mg/dL (2.5-4.9); POTASSIUM 3.9 mmol/L (3.5-5.1); SODIUM 140 mmol/L (136-145)
[2019-03-08] MEDS: INSULIN SLIDING SCALE (NOVOLOG) 1 VIAL SQ SCH ×2 (06:36→11:13)
[2019-03-08] MEDS ORDERED: INSULIN (NOVOLOG) ASPART 100 UNITS/ML 10ML VIAL ONE (06:38)
--- NOTE | 2019-03-08 09:10 | CON.NEURO ---
Consult - Past Medical History Pulmonary: Yes: Asthma ...LMP: 12/03/15 Endocrine: Yes: Diabetes Mellitus - Alcohol/Substance Use Hx Alcohol Use: No - Smoking History Smoking history: Never smoked Have you smoked in the past 12 months: No Home Medications - Allergies Allergies/Adverse Reactions: Allergies Allergy/AdvReac Type Severity Reaction Status Date / Time Penicillins Allergy Severe RESPIRATORY Verified 12/29/16 09:44 DISTRESS piperacillin sodium AdvReac Severe Difficulty Verified 12/29/16 09:44 [From Zosyn] Breathing tazobactam sodium AdvReac Severe Difficulty Verified 12/29/16 09:44 [From Zosyn] Breathing - Home Medications Home Medications: Ambulatory Orders Insulin Sliding Scale [Novolog Vial Sliding Scale -] 1 vial SQ TIDAC #100 units 05/23/16 Insulin Glargine,Hum.rec.anlog [Lantus] 30 unit SQ AM 03/08/19 Levetiracetam [Keppra Xr] 750 mg PO BID 03/08/19 Metformin HCl [Metformin HCl ER] 1,000 mg PO BID 03/08/19 Family Disease History - Family Disease History Family Disease History: Diabetes: Grandparent (Breast ca 70), Mother Physical Exam-Neuro Vital Signs: Vital Signs Temperature 98.1 F 03/08/19 07:09 Pulse Rate 88 03/08/19 07:09 Respiratory Rate 19 03/08/19 06:48 Blood Pressure 122/83 03/08/19 07:09 O2 Sat by Pulse Oximetry (%) 98 03/08/19 07:09 Labs: CBC, BMP 03/08/19 05:15 03/08/19 05:15 INR, PTT INR 0.97 (0.83-1.09) 03/07/19 21:17 Assessment/Plan cc Breakthrough seizures HPI 28 year old female history of epilepsy ( for two years ), Obesity, IDDM, Asthma. Patient has several tonic clonic seizure and also had episode seizure night beofre and felt there was blood in her mouth. Patient taking keppra 1 gm po bid as per patient, and Patient denies any new illness, denies any missing dose. Patient ran out of medication two weeks before coming to hospital. Patient had ct scan done and blood test were normal in ed. She denies any drug use , any head trauma. PMH as above FH,SH,ROS, reviewed in chart P Allergies Penicillins Allergy (Severe, Verified 12/29/16 09:44) RESPIRATORY DISTRESS piperacillin sodium [From Zosyn] Adverse Reaction (Severe, Verified 12/29/16 09: 44) Difficulty Breathing ANAPHYLACTIC SHOCK tazobactam sodium [From Zosyn] Adverse Reaction (Severe, Verified 12/29/16 09:44 ) Difficulty Breathing ANAPHYLACTIC SHOCK HOME MEDICATIONS: Home Medications Medication Instructions Recorded Insulin Sliding Scale [Novolog 1 vial SQ TIDAC #100 units 05/23/16 Vial Sliding Scale -] Clindamycin [Cleocin -] 300 mg PO Q6HPO #25 capsule 01/03/17 Insulin (Levemir) [Levemir Vial] 18 units SQ ACBK #10 ml 01/03/17 Insulin (Levemir) [Levemir Vial] 24 units SQ HS #10 ml 01/03/17 NEUROLOGICAL EXAMINATION Alert oriented x 3, speech is normal, no neck stiffness eomi, pupils reactive, no facial asymmetry moving all ext sensation is normal ct head is normal Assessment/Plan 28 year old female, 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 She has several breakthrough seizure , generlaized tonic seizure. As per patient she is compliant with medication, neuro exam and brain imaging is normal. Plan: increase keppra to 1500 mg po bid - mri of brain is not needed - eeg can be done if patient stays in hospital - once patient post ical confusion clears , she can be discharged home - follow up outpatient with neurologist Thanking you so much Alexei Frost MD
[2019-03-08] MEDS ORDERED: levETIRAcetam 500 MG TABLET (FP) PO ONE (09:35)
[2019-03-08] MEDS ORDERED: levETIRAcetam XR 750 MG TAB PO SCH (10:00)
[2019-03-08] MEDS ORDERED: MAGNESIUM SULF 50% (8.12 MEQ/2 ML-1 GM VIAL) IVPB ONE (10:00)
[2019-03-08] MEDS ORDERED: levETIRAcetam 500 MG TABLET (FP) PO SCH (10:00)
[2019-03-08] MEDS ORDERED: ENOXAPARIN NA (PORCINE) 40 MG/0.4 ML DISP.SYRIN SQ SCH (10:00)
--- NOTE | 2019-03-08 10:20 | EKG ---
Test Reason : Blood Pressure : / mmHG Vent. Rate : 086 BPM Atrial Rate : 086 BPM P-R Int : 152 ms QRS Dur : 078 ms QT Int : 392 ms P-R-T Axes : 033 003 028 degrees QTc Int : 469 ms NORMAL SINUS RHYTHM NORMAL ECG WHEN COMPARED WITH ECG OF 29-DEC-2016 13:37, NO SIGNIFICANT CHANGE WAS FOUND Confirmed by ELIJAH LENTZ MD ([id number]) on 03/08/2019 10:20:09 AM Referred By: Confirmed By:ELIJAH LENTZ MD
[2019-03-08] MEDS ORDERED: MAGNESIUM SULF 50% (8.12 MEQ/2 ML-1 GM VIAL) ONE (11:04)
[2019-03-08] MEDS ORDERED: INSULIN REGULAR HUMAN 100 UNITS/ML *VIAL ONE (11:15)
[2019-03-08 12:16] VITALS: TEMP 97.9
[2019-03-08 14:33] VITALS: BP 136/74; PULSE 87
--- NOTE | 2019-03-08 15:01 | DS ---
Physical Exam: SUBJECTIVE: Patient seen and examined at bedside this morning. Endorses that she had missed two weeks of her Keppra as she had recently run out of the medication. Denies headache, subjective fevers, chills, shortness of breath, chest pain, palpitations, abdominal pain, nausea, vomiting. OBJECTIVE: Vital Signs Period Temp Pulse Resp BP Sys/[place]fall Pulse Ox Last 24 Hr 97.9 F-98.5 F 78-88 14-19 108-136/60-83 95-100 PHYSICAL EXAM GENERAL: The patient is awake, alert, and fully oriented, in no acute distress. HEAD: Normocephalic, atraumatic. EYES: PERRL, extraocular movements intact, sclera anicteric, conjunctiva clear. ENT: Oropharynx clear, without erythema or exudates. Moist mucous membranes. NECK: Trachea midline, full range of motion. Supple without lymphadenopathy. LUNGS: Breath sounds equal, clear to auscultation bilaterally, no wheezes, no crackles. No accessory muscle use. HEART: Regular rate and rhythm, S1, S2 without murmur, rub or gallop. ABDOMEN: Soft, nondistended, nontender to light and deep palpation x4 quadrants , no rebound tenderness, no guarding. Normoactive bowel sounds x4 quadrants. no hepatosplenomegaly, no masses. EXTREMITIES: 2+ radial, dorsalis pedis pulses bilaterally. Warm, well-perfused. No lower extremity edema bilaterally. NEUROLOGICAL: Cranial nerves II through XII grossly intact. Normal speech. No gross focal deficits. Strength 5/5 bilateral upper and lower extremities. PSYCH: Normal mood, normal affect upon my encounter. SKIN: Warm, dry. LABS Laboratory Results - last 24 hr 03/07/19 03/07/19 03/07/19 21:17 21:17 21:17 WBC 11.3 H RBC 5.70 H Hgb 12.7 Hct 40.1 MCV 70.4 L MCH 22.3 L MCHC 31.6 L RDW 15.6 Plt Count 318 MPV 8.5 Absolute Neuts (auto) 5.9 Neutrophils % 52.0 Lymphocytes % 39.2 D Monocytes % 6.6 Eosinophils % 1.4 Basophils % 0.8 Nucleated RBC % 0 PT with INR INR PTT (Actin FS) 32.0 VBG pH 7.40 POC VBG pCO2 41.4 POC VBG pO2 58.8 H VBG HCO3 24.8 VBG O2 Sat (Delmy) 89.6 H VBG Base Excess 0.4 Sodium Potassium Chloride Carbon Dioxide Anion Gap BUN Creatinine Creat Clearance w eGFR POC Glucometer Random Glucose Lactic Acid Calcium Phosphorus Magnesium Total Bilirubin AST ALT Alkaline Phosphatase Creatine Kinase Creatine Kinase Index CK-MB (CK-2) Troponin I Total Protein Albumin TSH Serum , Qual Urine Color Urine Appearance Urine pH Ur Specific [place] Urine Protein Urine Glucose (UA) Urine Ketones Urine Blood Urine Nitrite Urine Bilirubin Urine Urobilinogen Ur Leukocyte Esterase Urine RBC (Auto) Urine Casts (Auto) U Epithel Cells (Auto) Opiates Screen Methadone Screen Barbiturate Screen Phencyclidine Screen Ur Amphetamines Screen MDMA (Ecstasy) Screen Benzodiazepines Screen Cocaine Screen U Marijuana (THC) Screen Acetone, Qual 03/07/19 03/07/19 03/07/19 21:17 21:17 21:17 WBC RBC Hgb Hct MCV MCH MCHC RDW Plt Count MPV Absolute Neuts (auto) Neutrophils % Lymphocytes % Monocytes % Eosinophils % Basophils % Nucleated RBC % PT with INR 11.50 INR 0.97 PTT (Actin FS) VBG pH POC VBG pCO2 POC VBG pO2 VBG HCO3 VBG O2 Sat (Delmy) VBG Base Excess Sodium 136 Potassium 4.3 Chloride 101 Carbon Dioxide 25 Anion Gap 10 BUN 9 Creatinine 0.7 Creat Clearance w eGFR 99.64 POC Glucometer Random Glucose 302 H* Lactic Acid 3.5 H* Calcium 9.4 Phosphorus Magnesium 2.2 Total Bilirubin 0.3 AST 13 L ALT 24 Alkaline Phosphatase 81 Creatine Kinase 156 Creatine Kinase Index 0.8 CK-MB (CK-2) 1.4 Troponin I < 0.02 Total Protein 8.1 Albumin 4.0 TSH 1.98 Serum , Qual Urine Color Urine Appearance Urine pH Ur Specific [place] Urine Protein Urine Glucose (UA) Urine Ketones Urine Blood Urine Nitrite Urine Bilirubin Urine Urobilinogen Ur Leukocyte Esterase Urine RBC (Auto) Urine Casts (Auto) U Epithel Cells (Auto) Opiates Screen Methadone Screen Barbiturate Screen Phencyclidine Screen Ur Amphetamines Screen MDMA (Ecstasy) Screen Benzodiazepines Screen Cocaine Screen U Marijuana (THC) Screen Acetone, Qual Negative L 03/07/19 03/07/19 03/08/19 21:17 21:30 01:10 WBC RBC Hgb Hct MCV MCH MCHC RDW Plt Count MPV Absolute Neuts (auto) Neutrophils % Lymphocytes % Monocytes % Eosinophils % Basophils % Nucleated RBC % PT with INR INR PTT (Actin FS) VBG pH POC VBG pCO2 POC VBG pO2 VBG HCO3 VBG O2 Sat (Delmy) VBG Base Excess Sodium Potassium Chloride Carbon Dioxide Anion Gap BUN Creatinine Creat Clearance w eGFR POC Glucometer 306 Random Glucose Lactic Acid 2.4 H* Calcium Phosphorus Magnesium Total Bilirubin AST ALT Alkaline Phosphatase Creatine Kinase Creatine Kinase Index CK-MB (CK-2) Troponin I Total Protein Albumin TSH Serum , Qual Negative Urine Color Urine Appearance Urine pH Ur Specific [place] Urine Protein Urine Glucose (UA) Urine Ketones Urine Blood Urine Nitrite Urine Bilirubin Urine Urobilinogen Ur Leukocyte Esterase Urine RBC (Auto) Urine Casts (Auto) U Epithel Cells (Auto) Opiates Screen Methadone Screen Barbiturate Screen Phencyclidine Screen Ur Amphetamines Screen MDMA (Ecstasy) Screen Benzodiazepines Screen Cocaine Screen U Marijuana (THC) Screen Acetone, Qual 03/08/19 03/08/19 03/08/19 04:05 04:05 05:15 WBC 9.3 RBC 5.04 Hgb 11.3 Hct 35.4 MCV 70.3 L MCH 22.5 L MCHC 32.0 RDW 15.6 Plt Count 260 MPV 8.2 Absolute Neuts (auto) 3.9 Neutrophils % 42.1 L Lymphocytes % 48.2 H D Monocytes % 7.8 Eosinophils % 1.8 Basophils % 0.1 Nucleated RBC % 0 PT with INR INR PTT (Actin FS) VBG pH POC VBG pCO2 POC VBG pO2 VBG HCO3 VBG O2 Sat (Delmy) VBG Base Excess Sodium Potassium Chloride Carbon Dioxide Anion Gap BUN Creatinine Creat Clearance w eGFR POC Glucometer Random Glucose Lactic Acid Calcium Phosphorus Magnesium Total Bilirubin AST ALT Alkaline Phosphatase Creatine Kinase Creatine Kinase Index CK-MB (CK-2) Troponin I Total Protein Albumin TSH Serum , Qual Urine Color Yellow Urine Appearance Clear Urine pH 5.5 Ur Specific [place] 1.025 Urine Protein Negative Urine Glucose (UA) 2+ H Urine Ketones Trace Urine Blood 3+ H Urine Nitrite Negative Urine Bilirubin Negative Urine Urobilinogen 1.0 Ur Leukocyte Esterase Negative Urine RBC (Auto) 15-20 Urine Casts (Auto) 1-3 U Epithel Cells (Auto) Rare Opiates Screen Negative Methadone Screen Negative Barbiturate Screen Negative Phencyclidine Screen Negative Ur Amphetamines Screen Negative MDMA (Ecstasy) Screen Negative Benzodiazepines Screen Positive A* Cocaine Screen Negative U Marijuana (THC) Screen Negative Acetone, Qual 03/08/19 03/08/19 03/08/19 05:15 05:25 06:34 WBC RBC Hgb Hct MCV MCH MCHC RDW Plt Count MPV Absolute Neuts (auto) Neutrophils % Lymphocytes % Monocytes % Eosinophils % Basophils % Nucleated RBC % PT with INR INR PTT (Actin FS) VBG pH POC VBG pCO2 POC VBG pO2 VBG HCO3 VBG O2 Sat (Delmy) VBG Base Excess Sodium 140 Potassium 3.9 Chloride 106 Carbon Dioxide 25 Anion Gap 9 BUN 10 Creatinine 0.5 L Creat Clearance w eGFR 146.91 POC Glucometer 246 Random Glucose 254 H Lactic Acid 1.9 Calcium 8.5 Phosphorus 4.3 Magnesium 1.7 L Total Bilirubin AST ALT Alkaline Phosphatase Creatine Kinase Creatine Kinase Index CK-MB (CK-2) Troponin I Total Protein Albumin TSH Serum , Qual Urine Color Urine Appearance Urine pH Ur Specific [place] Urine Protein Urine Glucose (UA) Urine Ketones Urine Blood Urine Nitrite Urine Bilirubin Urine Urobilinogen Ur Leukocyte Esterase Urine RBC (Auto) Urine Casts (Auto) U Epithel Cells (Auto) Opiates Screen Methadone Screen Barbiturate Screen Phencyclidine Screen Ur Amphetamines Screen MDMA (Ecstasy) Screen Benzodiazepines Screen Cocaine Screen U Marijuana (THC) Screen Acetone, Qual 03/08/19 11:10 WBC RBC Hgb Hct MCV MCH MCHC RDW Plt Count MPV Absolute Neuts (auto) Neutrophils % Lymphocytes % Monocytes % Eosinophils % Basophils % Nucleated RBC % PT with INR INR PTT (Actin FS) VBG pH POC VBG pCO2 POC VBG pO2 VBG HCO3 VBG O2 Sat (Delmy) VBG Base Excess Sodium Potassium Chloride Carbon Dioxide Anion Gap BUN Creatinine Creat Clearance w eGFR POC Glucometer 227 Random Glucose Lactic Acid Calcium Phosphorus Magnesium Total Bilirubin AST ALT Alkaline Phosphatase Creatine Kinase Creatine Kinase Index CK-MB (CK-2) Troponin I Total Protein Albumin TSH Serum , Qual Urine Color Urine Appearance Urine pH Ur Specific [place] Urine Protein Urine Glucose (UA) Urine Ketones Urine Blood Urine Nitrite Urine Bilirubin Urine Urobilinogen Ur Leukocyte Esterase Urine RBC (Auto) Urine Casts (Auto) U Epithel Cells (Auto) Opiates Screen Methadone Screen Barbiturate Screen Phencyclidine Screen Ur Amphetamines Screen MDMA (Ecstasy) Screen Benzodiazepines Screen Cocaine Screen U Marijuana (THC) Screen Acetone, Qual HOSPITAL COURSE: Date of Admission:03/07/19 Date of Discharge: 03/08/19 Patient is a 28 year old female with history of epilepsy, and insulin dependent diabetes mellitus, presented after witnessed sonic clonic seizures. CT head was negative for acute intracranial pathology. Patient was given Keppra IV in the ED. She was hydrated with IV normal saline. Patient admitted to lapse in her Keppra, as she ran out of medication. Patient was evaluated by neurologist and had EEG performed. Her Keppra dose was increased to 1500mg PO BID. Neurology consult discussed discharge home with increased Keppra dosage; no need for brain MRI. To follow up with neurologist, and primary care physician. Minutes to complete discharge: 35 Discharge Summary Reason For Visit: STATUS EPILEPTIOUS Current Active Problems Status epilepticus (Acute) Convulsion disorder (Chronic) Condition: Stable - Instructions Diet, Activity, Other Instructions: You were admitted to the hospital due to seizure activity. You were evaluated by the neurologist and treated with anti-epileptic medication for the seizures. You had an EEG performed, and will discuss the results with your neurologist. You are being discharged home. Continue taking your home medications as directed. Your home Keppra dose has been increased. Take Keppra 1500mg every 12 hours. A prescription has been sent to your pharmacy. Continue your other medications as prescribed. Follow up with your primary care physician within two- three days after discharge. A referral to [facility] clinic has been provided. Follow up with your Neurologist within one week of discharge. A referral to Dr. Frost has been provided Return to the nearest Emergency Department if you experience any worsening symptoms, subjective fevers, chills, shortness of breath, chest pain, palpitations, abdominal pain, nausea, vomiting, falls, loss of consciousness, or any further seizures. Referrals: [facility] [place] [Provider Group] - 1 Week (Please call to make an appointment with Dr Garcia on Monday Morning beteen 9am and 11.30am) Alexei Frost MD [Staff Physician] - Disposition: HOME - Home Medications Comprehensive Discharge Medication List: Ambulatory Orders Insulin (Novolog) [Novolog] 10 units SQ BID 03/08/19 Insulin Detemir [Levemir Flextouch] 10 unit SQ HS #1 vial 03/08/19 Metformin HCl [Metformin HCl ER] 1,000 mg PO BID 03/08/19 levETIRAcetam [Keppra -] 1,500 mg PO Q12H 30 Days #180 tablet 03/08/19 This patient is new to me today: Yes Date on this admission: 03/08/19 Emergency Visit: Yes ED Registration Date: 03/07/19 Care time: The patient presented to the Emergency Department on the above date and was hospitalized for further evaluation of their emergent condition. Critical Care patient: No - Discharge Referral Referred to [facility] No
--- NOTE | 2019-03-08 20:37 | PN ---
Teaching Attending Note Name of Resident: Mukul Garcia ATTENDING PHYSICIAN STATEMENT I saw and evaluated the patient. I reviewed the resident's note and discussed the case with the resident. I agree with the resident's findings and plan as documented. SUBJECTIVE: More awake, alert. Denies headache, visual disturbance, limb numbness/weakness. OBJECTIVE: Afebrile, Hemodynamically Stable. Last Vital Signs Temp Pulse Resp BP Pulse Ox 97.9 F 87 18 136/74 95 03/08/19 11:50 03/08/19 14:32 03/08/19 14:32 03/08/19 14:32 03/08/19 14:32 HEENT - Atraumatic, Normocephalic. Tongue bite + Heart - S1, S2, RRR Lungs - clear to auscultation Abdomen - High BMI. Soft, non-tender. Bowel Sounds normal. Extremities - no edema, no calf tenderness Neuro - AAO x 3. Tone/Power normal all 4 extremities. Laboratory Results - last 24 hr 03/07/19 03/07/19 03/07/19 21:17 21:17 21:17 WBC 11.3 H RBC 5.70 H Hgb 12.7 Hct 40.1 MCV 70.4 L MCH 22.3 L MCHC 31.6 L RDW 15.6 Plt Count 318 MPV 8.5 Absolute Neuts (auto) 5.9 Neutrophils % 52.0 Lymphocytes % 39.2 D Monocytes % 6.6 Eosinophils % 1.4 Basophils % 0.8 Nucleated RBC % 0 PT with INR INR PTT (Actin FS) 32.0 VBG pH 7.40 POC VBG pCO2 41.4 POC VBG pO2 58.8 H VBG HCO3 24.8 VBG O2 Sat (Delmy) 89.6 H VBG Base Excess 0.4 Sodium Potassium Chloride Carbon Dioxide Anion Gap BUN Creatinine Creat Clearance w eGFR POC Glucometer Random Glucose Lactic Acid Calcium Phosphorus Magnesium Total Bilirubin AST ALT Alkaline Phosphatase Creatine Kinase Creatine Kinase Index CK-MB (CK-2) Troponin I Total Protein Albumin TSH Serum , Qual Urine Color Urine Appearance Urine pH Ur Specific [place] Urine Protein Urine Glucose (UA) Urine Ketones Urine Blood Urine Nitrite Urine Bilirubin Urine Urobilinogen Ur Leukocyte Esterase Urine RBC (Auto) Urine Casts (Auto) U Epithel Cells (Auto) Opiates Screen Methadone Screen Barbiturate Screen Phencyclidine Screen Ur Amphetamines Screen MDMA (Ecstasy) Screen Benzodiazepines Screen Cocaine Screen U Marijuana (THC) Screen Acetone, Qual 03/07/19 03/07/19 03/07/19 21:17 21:17 21:17 WBC RBC Hgb Hct MCV MCH MCHC RDW Plt Count MPV Absolute Neuts (auto) Neutrophils % Lymphocytes % Monocytes % Eosinophils % Basophils % Nucleated RBC % PT with INR 11.50 INR 0.97 PTT (Actin FS) VBG pH POC VBG pCO2 POC VBG pO2 VBG HCO3 VBG O2 Sat (Delmy) VBG Base Excess Sodium 136 Potassium 4.3 Chloride 101 Carbon Dioxide 25 Anion Gap 10 BUN 9 Creatinine 0.7 Creat Clearance w eGFR 99.64 POC Glucometer Random Glucose 302 H* Lactic Acid 3.5 H* Calcium 9.4 Phosphorus Magnesium 2.2 Total Bilirubin 0.3 AST 13 L ALT 24 Alkaline Phosphatase 81 Creatine Kinase 156 Creatine Kinase Index 0.8 CK-MB (CK-2) 1.4 Troponin I < 0.02 Total Protein 8.1 Albumin 4.0 TSH 1.98 Serum , Qual Urine Color Urine Appearance Urine pH Ur Specific Kelly Urine Protein Urine Glucose (UA) Urine Ketones Urine Blood Urine Nitrite Urine Bilirubin Urine Urobilinogen Ur Leukocyte Esterase Urine RBC (Auto) Urine Casts (Auto) U Epithel Cells (Auto) Opiates Screen Methadone Screen Barbiturate Screen Phencyclidine Screen Ur Amphetamines Screen MDMA (Ecstasy) Screen Benzodiazepines Screen Cocaine Screen U Marijuana (THC) Screen Acetone, Qual Negative L 03/07/19 03/07/19 03/08/19 21:17 21:30 01:10 WBC RBC Hgb Hct MCV MCH MCHC RDW Plt Count MPV Absolute Neuts (auto) Neutrophils % Lymphocytes % Monocytes % Eosinophils % Basophils % Nucleated RBC % PT with INR INR PTT (Actin FS) VBG pH POC VBG pCO2 POC VBG pO2 VBG HCO3 VBG O2 Sat (Delmy) VBG Base Excess Sodium Potassium Chloride Carbon Dioxide Anion Gap BUN Creatinine Creat Clearance w eGFR POC Glucometer 306 Random Glucose Lactic Acid 2.4 H* Calcium Phosphorus Magnesium Total Bilirubin AST ALT Alkaline Phosphatase Creatine Kinase Creatine Kinase Index CK-MB (CK-2) Troponin I Total Protein Albumin TSH Serum , Qual Negative Urine Color Urine Appearance Urine pH Ur Specific [place] Urine Protein Urine Glucose (UA) Urine Ketones Urine Blood Urine Nitrite Urine Bilirubin Urine Urobilinogen Ur Leukocyte Esterase Urine RBC (Auto) Urine Casts (Auto) U Epithel Cells (Auto) Opiates Screen Methadone Screen Barbiturate Screen Phencyclidine Screen Ur Amphetamines Screen MDMA (Ecstasy) Screen Benzodiazepines Screen Cocaine Screen U Marijuana (THC) Screen Acetone, Qual 03/08/19 03/08/19 03/08/19 04:05 04:05 05:15 WBC 9.3 RBC 5.04 Hgb 11.3 Hct 35.4 MCV 70.3 L MCH 22.5 L MCHC 32.0 RDW 15.6 Plt Count 260 MPV 8.2 Absolute Neuts (auto) 3.9 Neutrophils % 42.1 L Lymphocytes % 48.2 H D Monocytes % 7.8 Eosinophils % 1.8 Basophils % 0.1 Nucleated RBC % 0 PT with INR INR PTT (Actin FS) VBG pH POC VBG pCO2 POC VBG pO2 VBG HCO3 VBG O2 Sat (Delmy) VBG Base Excess Sodium Potassium Chloride Carbon Dioxide Anion Gap BUN Creatinine Creat Clearance w eGFR POC Glucometer Random Glucose Lactic Acid Calcium Phosphorus Magnesium Total Bilirubin AST ALT Alkaline Phosphatase Creatine Kinase Creatine Kinase Index CK-MB (CK-2) Troponin I Total Protein Albumin TSH Serum , Qual Urine Color Yellow Urine Appearance Clear Urine pH 5.5 Ur Specific Kelly 1.025 Urine Protein Negative Urine Glucose (UA) 2+ H Urine Ketones Trace Urine Blood 3+ H Urine Nitrite Negative Urine Bilirubin Negative Urine Urobilinogen 1.0 Ur Leukocyte Esterase Negative Urine RBC (Auto) 15-20 Urine Casts (Auto) 1-3 U Epithel Cells (Auto) Rare Opiates Screen Negative Methadone Screen Negative Barbiturate Screen Negative Phencyclidine Screen Negative Ur Amphetamines Screen Negative MDMA (Ecstasy) Screen Negative Benzodiazepines Screen Positive A* Cocaine Screen Negative U Marijuana (THC) Screen Negative Acetone, Qual 03/08/19 03/08/19 03/08/19 05:15 05:25 06:34 WBC RBC Hgb Hct MCV MCH MCHC RDW Plt Count MPV Absolute Neuts (auto) Neutrophils % Lymphocytes % Monocytes % Eosinophils % Basophils % Nucleated RBC % PT with INR INR PTT (Actin FS) VBG pH POC VBG pCO2 POC VBG pO2 VBG HCO3 VBG O2 Sat (Delmy) VBG Base Excess Sodium 140 Potassium 3.9 Chloride 106 Carbon Dioxide 25 Anion Gap 9 BUN 10 Creatinine 0.5 L Creat Clearance w eGFR 146.91 POC Glucometer 246 Random Glucose 254 H Lactic Acid 1.9 Calcium 8.5 Phosphorus 4.3 Magnesium 1.7 L Total Bilirubin AST ALT Alkaline Phosphatase Creatine Kinase Creatine Kinase Index CK-MB (CK-2) Troponin I Total Protein Albumin TSH Serum , Qual Urine Color Urine Appearance Urine pH Ur Specific Kelly Urine Protein Urine Glucose (UA) Urine Ketones Urine Blood Urine Nitrite Urine Bilirubin Urine Urobilinogen Ur Leukocyte Esterase Urine RBC (Auto) Urine Casts (Auto) U Epithel Cells (Auto) Opiates Screen Methadone Screen Barbiturate Screen Phencyclidine Screen Ur Amphetamines Screen MDMA (Ecstasy) Screen Benzodiazepines Screen Cocaine Screen U Marijuana (THC) Screen Acetone, Qual 03/08/19 11:10 WBC RBC Hgb Hct MCV MCH MCHC RDW Plt Count MPV Absolute Neuts (auto) Neutrophils % Lymphocytes % Monocytes % Eosinophils % Basophils % Nucleated RBC % PT with INR INR PTT (Actin FS) VBG pH POC VBG pCO2 POC VBG pO2 VBG HCO3 VBG O2 Sat (Delmy) VBG Base Excess Sodium Potassium Chloride Carbon Dioxide Anion Gap BUN Creatinine Creat Clearance w eGFR POC Glucometer 227 Random Glucose Lactic Acid Calcium Phosphorus Magnesium Total Bilirubin AST ALT Alkaline Phosphatase Creatine Kinase Creatine Kinase Index CK-MB (CK-2) Troponin I Total Protein Albumin TSH Serum , Qual Urine Color Urine Appearance Urine pH Ur Specific Kelly Urine Protein Urine Glucose (UA) Urine Ketones Urine Blood Urine Nitrite Urine Bilirubin Urine Urobilinogen Ur Leukocyte Esterase Urine RBC (Auto) Urine Casts (Auto) U Epithel Cells (Auto) Opiates Screen Methadone Screen Barbiturate Screen Phencyclidine Screen Ur Amphetamines Screen MDMA (Ecstasy) Screen Benzodiazepines Screen Cocaine Screen U Marijuana (THC) Screen Acetone, Qual Discharge Medications Medication Instructions Recorded Insulin (Novolog) [Novolog] 10 units SQ BID 03/08/19 Insulin Detemir [Levemir Flextouch] 10 unit SQ HS #1 vial 03/08/19 Metformin HCl [Metformin HCl ER] 1,000 mg PO BID 03/08/19 levETIRAcetam [Keppra -] 1,500 mg PO Q12H 30 Days #180 03/08/19 tablet ASSESSMENT AND PLAN: 28 year old female with history of Morbid Obesity, DM 2, Seizure Disorder, Asthma, BIBEMS after multiple (>8 reported) witnessed tonic-clonic seizures. s/ p Versed. Claims compliance with anti-epileptic meds. 1. Seizure Disorder with Breakthrough Seizures, now resolved. CT Head - negative Evaluated by Neuro - Ricardo dose increased to 1500mg BID EEG performed- to follow with Dr. Frost as out-patient for results Elevated Lactate secondary to seizure activity - trended down from 3.5 to 1.9 with IV hydration - no signs of sepsis. Afebrile, Hemodynamically Stable, Neurologically intact. 2. DM 2 - Hyperglycemic s/p Seizure. Continue home meds - Metformin and Levemir/Novolog. Medically/Neurologically stable for discharge with Neuro follow up.
== END 2019-03-08 15:03 | disposition home or self-care (01) | DRG 53 ==
LOC: JER 21:07 → JERBED 23:40 → OBSVTOIN 23:56
PROVIDERS: ADMIT Internal Medicine
DX: G40.901 Epilepsy, unspecified, not intractable, with status epilepticus (principal); E87.2 Acidosis; E11.65 Type 2 diabetes mellitus with hyperglycemia; E66.01 Morbid (severe) obesity due to excess calories; Z68.36 Body mass index [BMI] 36.0-36.9, adult; J45.909 Unspecified asthma, uncomplicated; Z79.4 Long term (current) use of insulin; Z88.0 Allergy status to penicillin; Z79.84 Long term (current) use of oral hypoglycemic drugs
CPT/HCPCS: 36415; 70450-TC; 71045-TC-FY; 80048; 80053; 80307; 81003; 82009; 82550; 82553; 82803; 82962; 83605; 83735; 84100; 84443; 84484; 84703; 85025; 85610; 85730; 87040; 87086; 93005; 93010; 95816; 99285-25; G0378; J7030

== ENCOUNTER 2019-11-26 12:05 | Emergency (ER) | payer OTHER ==
[2019-11-26 12:32] VITALS: BMI 39.2
[2019-11-26] MEDS ORDERED: SODIUM CHLORIDE 1,000 ML IV STA (12:56)
[2019-11-26] MEDS ORDERED: ONDANSETRON 4 MG/2 ML VIAL IVPUSH ONE (12:56)
[2019-11-26] MEDS ORDERED: KETOROLAC TROMETHAMINE 30 MG/1 ML VIAL IVPUSH ONE (12:56)
[2019-11-26] MEDS ORDERED: KETOROLAC TROMETHAMINE 30 MG/1 ML VIAL ONE (14:29)
[2019-11-26] MEDS ORDERED: ONDANSETRON 4 MG/2 ML VIAL ONE (14:30)
[2019-11-26 14:37] LABS: PH,URINE 5.5 (5.0-8.0); URINE APPEARANCE CLEAR; URINE BILIRUBIN NEGATIVE (NEGATIVE); URINE COLOR YELLOW; URINE GLUCOSE (UA) 3+ (NEGATIVE); URINE KETONE NEGATIVE (NEGATIVE); URINE LEUK ESTERASE NEGATIVE (NEGATIVE); URINE NITRITE NEGATIVE (NEGATIVE); URINE PROTEIN NEGATIVE (NEGATIVE); URINE UROBILINOGEN 0.2 mg/dL (0.2-1.0)
[2019-11-26 15:03] LABS: VENOUS PC02 47.4 mmHg (38-52); VENOUS PH 7.36 (7.31-7.41)
[2019-11-26 15:09] LABS: VENOUS PO2 < 49 mmHg (28-48)
[2019-11-26 15:17] LABS: BASO % 0.3 % (0-2.0); EOS % 1.2 % (0-4.5); HEMATOCRIT 41.1 % (32.4-45.2); HEMOGLOBIN 12.9 GM/dL (10.7-15.3); LYMPH % 40.3 % (8-40); MCH 22.4 pg (25.7-33.7); MCHC 31.4 g/dl (32.0-36.0); MEAN CELL VOLUME 71.1 fl (80-96); MEAN PLT VOLUME 9.2 fl (7.5-11.1); MONO % 7.3 % (3.8-10.2); NEUT % 50.9 % (42.8-82.8); PLATELET COUNT 276 K/MM3 (134-434); RBC 5.78 M/mm3 (3.60-5.2); RDW 15.6 % (11.6-15.6); WHITE BLOOD COUNT 10.3 K/mm3 (4.0-10.0)
--- NOTE | 2019-11-26 15:31 | PDOC ---
History of Present Illness - General Chief Complaint: Pain Stated Complaint: ABD PAIN/ VOMITING/ FEVER Time Seen by Provider: 11/26/19 12:53 History Source: Patient Exam Limitations: No Limitations - History of Present Illness Travel History: No Initial Comments: 11/26/19 15:10 29 y/o female presents to the ED with complaints of nausea vomiting and 2 episodes of diarrhea a few days ago now stating she has not had a bowel movement in 2 days. Patient states history of diabetes but denies elevated glucose recent change in medications, recent illness or recent travel. Patient also has no urinary complaints, chest pain, cough, or rash. Patient does complain of lower abdominal sharp pain intermittently associated cramping for the past week. Patient has no GI history. Timing/Duration: reports: changing over time, intermittent Quality: reports: mild Abdominal Pain Onset Location: reports: LLQ Pain Radiation: reports: no radiation Activities at Onset: reports: none Aggravating Factors: improves with: None Alleviating Factors: improves with: None Past History - Travel Traveled outside of the country in the last 30 days: No Close contact w/someone who was outside of country & ill: No - Past Medical History Allergies/Adverse Reactions: Allergies Allergy/AdvReac Type Severity Reaction Status Date / Time Penicillins Allergy Severe RESPIRATORY Verified 11/26/19 12:27 DISTRESS piperacillin sodium AdvReac Severe Difficulty Verified 11/26/19 12:27 [From Zosyn] Breathing tazobactam sodium AdvReac Severe Difficulty Verified 11/26/19 12:27 [From Zosyn] Breathing Home Medications: Ambulatory Orders Insulin (Novolog) [Novolog] 10 units SQ BID 03/08/19 Insulin Detemir [Levemir Flextouch] 10 unit SQ HS #1 vial 03/08/19 levETIRAcetam [Keppra -] 1,500 mg PO Q12H 30 Days #180 tablet 03/08/19 metFORMIN HCL [Metformin HCl ER] 1,000 mg PO BID 03/08/19 Anemia: No Asthma: Yes (DX CHILD-STABLE) Cancer: No Cardiac Disorders: No CVA: No COPD: No CHF: No Dementia: No Diabetes: Yes (INSULIN- DX 2007) GI Disorders: No Disorders: No HTN: No Hypercholesterolemia: No Liver Disease: No Seizures: No Thyroid Disease: No - Surgical History Abdominal Surgery: No Appendectomy: No Cardiac Surgery: No Cholecystectomy: No Lung Surgery: No Neurologic Surgery: No Orthopedic Surgery: No - Immunization History Immunization Up to Date: Yes (NO FLU) - Psycho Social/Smoking Cessation Hx Smoking History: Never smoked Have you smoked in the past 12 months: No Hx Alcohol Use: No Drug/Substance Use Hx: No Substance Use Type: None Hx Substance Use Treatment: No Patient Lives Alone: No Lives with/in: parents Review of Systems - Review of Systems Able to Perform ROS?: Yes Constitutional: Yes: Weakness HEENTM: No: Symptoms Reported Respiratory: No: Symptoms reported Cardiac (ROS): No: Symptoms Reported ABD/GI: Yes: Constipated, Diarrhea, Nausea, Vomiting, Abdominal cramping : No: Symptoms Reported Musculoskeletal: No: Symptoms Reported Integumentary: No: Symptoms Reported Neurological: No: Symptoms reported Endocrine: No: Symptoms Reported Hematologic/Lymphatic: No: Symptoms Reported *Physical Exam - Vital Signs Last Vital Signs Temp Pulse Resp BP Pulse Ox 98.2 F 90 17 127/72 98 11/26/19 12:28 11/26/19 12:28 11/26/19 12:28 11/26/19 12:28 11/26/19 12:28 - Physical Exam General Appearance: Yes: Nourished, Appropriately Dressed. No: Apparent Distress HEENT: negative: Pale Conjunctivae Neck: positive: Normal Thyroid Respiratory/Chest: positive: Lungs Clear, Normal Breath Sounds. negative: Respiratory Distress, Accessory Muscle Use Cardiovascular: positive: Regular Rhythm, Regular Rate. negative: Murmur Gastrointestinal/Abdominal: positive: Soft, Tenderness (Left lower quadrant) Musculoskeletal: negative: CVA Tenderness Extremity: positive: Normal Inspection Integumentary: positive: Normal Color, Warm, Moist Neurologic: positive: Motor Strength 5/5 (Ambulatory) ED Treatment Course - LABORATORY CBC & Chemistry Diagram: 11/26/19 14:45 11/26/19 14:45 - ADDITIONAL ORDERS Additional order review: Laboratory Results 11/26/19 11/26/19 11/26/19 14:45 13:53 13:53 VBG pH 7.36 POC VBG pCO2 47.4 POC VBG pO2 < 49 H VBG HCO3 26.3 VBG O2 Sat (Delmy) 55.2 L VBG Base Excess 1.0 Urine Color Yellow Urine Appearance Clear Urine pH 5.5 Ur Specific [place] 1.040 H Urine Protein Negative Urine Glucose (UA) 3+ H Urine Ketones Negative Urine Blood Negative Urine Nitrite Negative Urine Bilirubin Negative Urine Urobilinogen 0.2 Ur Leukocyte Esterase Negative Urine HCG, Qual Negative - Medications Given in the ED: ED Medications Discontinued Medications Generic Name Dose Route Start Last Admin Trade Name Rubinq PRN Reason Stop Dose Admin Sodium Chloride 1,000 mls @ 1,000 mls/hr 11/26/19 12:56 11/26/19 14:25 Normal Saline - IV 11/26/19 13:55 1,000 mls/hr ASDIR STA Administration Ketorolac Tromethamine 30 mg 11/26/19 12:56 11/26/19 14:25 Toradol Injection - IVPUSH 11/26/19 12:57 30 mg ONCE ONE Administration Ondansetron HCl 4 mg 11/26/19 12:56 11/26/19 14:25 Zofran Injection IVPUSH 11/26/19 12:57 4 mg ONCE ONE Administration Medical Decision Making - Medical Decision Making 11/26/19 15:03 Chief complaint: Nausea vomiting with diarrhea along with lower abdominal cramping intermittently for the past 2 weeks patient has no other complaints. Patient states checked her glucose yesterday which was 192. denies GI history. Exam: Vital signs stable left lower quadrant tenderness otherwise normal physical exam. Plan: Labs, urine, IV fluids, antiemetics 11/26/19 15:35 Laboratory Tests 11/26/19 11/26/19 11/26/19 13:53 13:53 14:45 VBG pH 7.36 POC VBG pO2 < 49 H VBG HCO3 26.3 VBG O2 Sat (Delmy) 55.2 L VBG Base Excess 1.0 Urine Color Yellow Urine Appearance Clear Urine pH 5.5 Ur Specific [place] 1.040 H Urine Protein Negative Urine Glucose (UA) 3+ H Urine Ketones Negative Urine Blood Negative Urine Nitrite Negative Urine Bilirubin Negative Urine Urobilinogen 0.2 Ur Leukocyte Esterase Negative Urine HCG, Qual Negative 11/26/19 17:05 Pt states feeling much better. Patient's x-ray shows mild constipation without no other acute pathology. Patient will be given referral to actuarial intern as she has never seen a actuarial intern although she is suffered from irregular bowel movements since childhood. Discharge - Discharge Information Problems reviewed: Yes Clinical Impression/Diagnosis: Nausea & vomiting Condition: Improved Disposition: HOME - Follow up/Referral Referrals: Brian Galindo MD [Staff Physician] - - Patient Discharge Instructions Patient Printed Discharge Instructions: DI for Nausea -- Adult Additional Instructions: Follow-up with referred actuarial intern and eat bland foods avoiding spicy greasy food. - Post Discharge Activity
[2019-11-26 15:54] LABS: ALBUMIN 3.8 g/dl (3.4-5.0); BILIRUBIN,TOTAL 0.4 mg/dL (0.2-1); BLOOD UREA NITROGEN 11.6 mg/dL (7-18); CALCIUM 9.5 mg/dL (8.5-10.1); CREATININE 0.6 mg/dL (0.55-1.3); MAGNESIUM 2.3 mg/dL (1.8-2.4); POTASSIUM 4.4 mmol/L (3.5-5.1)
[2019-11-26 17:56] VITALS: BP 116/66; PULSE 85; TEMP 98.3
== END 2019-11-26 17:25 | disposition home or self-care (01) ==
LOC: JER 12:05
PROC: 3E0333Z Introduction of Anti-inflammatory into Peripheral Vein, Percutaneous Approach (ICD-10-PCS; principal; 2019-11-26)
PROC: 3E033GC Introduction of Other Therapeutic Substance into Peripheral Vein, Percutaneous Approach (ICD-10-PCS; 2019-11-26)
DX: R11.2 Nausea with vomiting, unspecified (principal); Z88.0 Allergy status to penicillin; Z88.8 Allergy status to other drugs, medicaments and biological substances
CPT/HCPCS: 36415; 74018-TC-FY; 80053; 81003; 82010; 82803; 83690; 83735; 84703; 85025; 87077; 87086; 99282-25; J7030

== ENCOUNTER 2020-06-25 23:19 | Emergency (ER) | payer OTHER ==
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
[2020-06-25] MEDS ORDERED: IBUPROFEN 600 MG TABLET (FP) PO ONE ×2 (23:26→23:31)
[2020-06-25 23:32] VITALS: BP 145/83; PULSE 97; TEMP 97.8; BMI 40.4
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
== END 2020-06-26 00:10 | disposition home or self-care (01) ==
LOC: JER 23:19
DX: M79.672 Pain in left foot (principal)
CPT/HCPCS: 73630-TC-LT; 99284-25

== ENCOUNTER 2020-07-16 21:16 | Inpatient (IN) | payer OTHER ==
[2020-07-16 21:25] VITALS: BMI 39.6
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
[2020-07-16] MEDS ORDERED: ACETAMINOPHEN 325 MG TABLET (FP) PO ONE (22:04)
[2020-07-16] MEDS ORDERED: ACETAMINOPHEN 325 MG TABLET (FP) ONE (22:33)
[2020-07-16 23:26] LABS: URINE APPEARANCE CLEAR; URINE BILIRUBIN NEGATIVE (NEGATIVE); URINE COLOR YELLOW
[2020-07-16 23:27] LABS: BASO % 0.4 % (0-2.0); EOS % 1.8 % (0-4.5); HEMATOCRIT 42.4 % (32.4-45.2); HEMOGLOBIN 13.4 GM/dL (10.7-15.3); LYMPH % 44.1 % (8-40); MCH 22.5 pg (25.7-33.7); MCHC 31.5 g/dl (32.0-36.0); MEAN CELL VOLUME 71.3 fl (80-96); MEAN PLT VOLUME 9.1 fl (7.5-11.1); NEUT % 46.7 % (42.8-82.8); PLATELET COUNT 303 K/MM3 (134-434); RBC 5.95 M/mm3 (3.60-5.2); RDW 15.3 % (11.6-15.6)
[2020-07-16 23:27] LABS: PH,URINE 5.5 (5.0-8.0); URINE KETONE TRACE (NEGATIVE); URINE LEUK ESTERASE NEGATIVE (NEGATIVE); URINE NITRITE NEGATIVE (NEGATIVE); URINE PROTEIN NEGATIVE (NEGATIVE); URINE UROBILINOGEN 0.2 mg/dL (0.2-1.0)
[2020-07-16 23:28] LABS: EPI CELLS 3.4 /uL (0-25.1); HYALINE CASTS 0 /uL (0-3.1); URINE BACTERIA 275.1 /uL (0-1359); URINE GLUCOSE (UA) 3+ (NEGATIVE); URINE RBC 1.5 /uL (0-23.9); URINE WBC 4.2 /uL (0-25.8)
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
[2020-07-17 00:05] LABS: BLOOD UREA NITROGEN 12.4 mg/dL (7-18); CREATININE 0.9 mg/dL (0.55-1.3)
[2020-07-17 00:06] LABS: BILIRUBIN,TOTAL 0.3 mg/dL (0.2-1); CALCIUM 9.8 mg/dL (8.5-10.1); POTASSIUM 4.5 mmol/L (3.5-5.1); TOT PROT 7.9 g/dl (6.4-8.2)
[2020-07-17] MEDS ORDERED: SODIUM CHLORIDE 0.9% 500 ML INFUS.BAG IV ONE (00:26)
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
[2020-07-17] MEDS ORDERED: INSULIN REGULAR HUMAN 100 UNITS/ML *VIAL SQ ONE (03:51)
[2020-07-17] MEDS ORDERED: SODIUM CHLORIDE 1,000 ML IV SCH ×2 (05:45)
[2020-07-17] MEDS ORDERED: ACETAMINOPHEN 325 MG TABLET (FP) PO PRN (06:28)
[2020-07-17] MEDS ORDERED: FLUCONAZOLE 150 MG TABLET PO ONE (06:31)
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
--- NOTE | 2020-07-17 06:54 | PN ---
Teaching Attending Note Name of Resident: Chad Hernández ATTENDING PHYSICIAN STATEMENT I saw and evaluated the patient. I reviewed the resident's note and discussed the case with the resident. I agree with the resident's findings and plan as documented. SUBJECTIVE: OBJECTIVE: ASSESSMENT AND PLAN: Patient is a 30 year old Female with a PMHx notable for HTN and DM II (on metformin) who presents with 2days of worsening lower abdominal pain for to have hyperglyemia CT abdomen/pelvis normal Agree with IV fluids ISS, monitor accuchcecks Check HgbA1c
[2020-07-17] MEDS: SODIUM CHLORIDE 1,000 ML IV SCH (06:58)
[2020-07-17] MEDS: INSULIN SLIDING SCALE (NOVOLOG) 1 VIAL SQ SCH ×4 (07:00→21:14)
[2020-07-17] MEDS ORDERED: INSULIN (LEVEMIR) 100 UNITS/ML UNITS SQ SCH (07:00)
[2020-07-17] MEDS ORDERED: INSULIN (NOVOLOG) ASPART 100 UNITS/ML 10ML VIAL ONE ×2 (07:18→21:07)
[2020-07-17 08:12] LABS: HEMATOCRIT 38.6 % (32.4-45.2); HEMOGLOBIN 12.2 GM/dL (10.7-15.3); MCH 22.7 pg (25.7-33.7); MCHC 31.7 g/dl (32.0-36.0); MEAN CELL VOLUME 71.5 fl (80-96); MEAN PLT VOLUME 9.3 fl (7.5-11.1); PLATELET COUNT 266 K/MM3 (134-434); WHITE BLOOD COUNT 9.1 K/mm3 (4.0-10.0)
[2020-07-17 08:26] LABS: ALBUMIN 3.5 g/dl (3.4-5.0); BILIRUBIN,TOTAL 0.4 mg/dL (0.2-1); CALCIUM 8.8 mg/dL (8.5-10.1); CREATININE 0.5 mg/dL (0.55-1.3); PHOSPHOROUS 4.4 mg/dL (2.5-4.9); POTASSIUM 3.9 mmol/L (3.5-5.1); TOT PROT 6.8 g/dl (6.4-8.2)
[2020-07-17 08:35] LABS: BLOOD UREA NITROGEN 11.3 mg/dL (7-18)
[2020-07-17] MEDS ORDERED: ENOXAPARIN NA (PORCINE) 40 MG/0.4 ML DISP.SYRIN SQ SCH (10:00)
[2020-07-17] MEDS ORDERED: INSULIN (LEVEMIR) 100 UNITS/ML UNITS SQ ONE (10:16)
[2020-07-17] MEDS ORDERED: ACETAMINOPHEN 1000 MG/100 ML VIAL (NON FORMULARY) IVPB PRN (10:18)
[2020-07-17] MEDS ORDERED: PT OWN MED DRAWER 7, Y5N ONE (10:37)
--- NOTE | 2020-07-17 10:44 | EKG ---
Test Reason : Blood Pressure : / mmHG Vent. Rate : 090 BPM Atrial Rate : 090 BPM P-R Int : 150 ms QRS Dur : 068 ms QT Int : 384 ms P-R-T Axes : 044 024 041 degrees QTc Int : 469 ms NORMAL SINUS RHYTHM NORMAL ECG WHEN COMPARED WITH ECG OF 07-MAR-2019 22:14, NO SIGNIFICANT CHANGE WAS FOUND Confirmed by LILIANA ANTHONY MD ([id number]) on 07/17/2020 10:44:19 AM Referred By: Confirmed By:LILIANA ANTHONY MD
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
[2020-07-17] MEDS: ENOXAPARIN NA (PORCINE) 40 MG/0.4 ML DISP.SYRIN SQ SCH (11:19)
[2020-07-17] MEDS: INSULIN (NOVOLOG) ASPART 100 UNITS/ML 10ML VIAL SQ SCH ×2 (11:22→17:07)
--- NOTE | 2020-07-17 13:22 | PN ---
Teaching Attending Note Name of Resident: Sofia Dickson ATTENDING PHYSICIAN STATEMENT I saw and evaluated the patient. I reviewed the resident's note and discussed the case with the resident. I agree with the resident's findings and plan as documented. SUBJECTIVE: pt seen and examined OBJECTIVE: Last Vital Signs Temp Pulse Resp BP Pulse Ox 98.1 F 91 H 20 140/88 98 07/17/20 11:32 07/17/20 11:32 07/17/20 11:32 07/17/20 04:01 07/17/20 11:32 GENERAL: Awake, alert, and fully oriented, in no acute distress. HEAD: Normal with no signs of trauma. EYES: Pupils equal, round and reactive to light, sclera anicteric, conjunctiva clear. LUNGS: Breath sounds equal, clear to auscultation bilaterally. No wheezes, and no crackles. No accessory muscle use. HEART: Regular rate and rhythm, normal S1 and S2 ABDOMEN: Obese, Soft, rt lumbar tenderness, no CVA tenderness, no rebound tenderness, RLQ area of cellulitis, tender, no subcut abscess MUSCULOSKELETAL: Normal range of motion at all joints. No bony deformities or tenderness. No CVA tenderness. UPPER EXTREMITIES: 2+ pulses, warm, well-perfused. No cyanosis. No clubbing. No peripheral edema. LOWER EXTREMITIES: 2+ pulses, warm, well-perfused. No calf tenderness. No peripheral edema. NEUROLOGICAL: Cranial nerves II-XII intact. Normal speech. CBCD WBC 9.1 K/mm3 (4.0-10.0) 07/17/20 06:58 RBC 5.40 M/mm3 (3.60-5.2) H 07/17/20 06:58 Hgb 12.2 GM/dL (10.7-15.3) 07/17/20 06:58 Hct 38.6 % (32.4-45.2) 07/17/20 06:58 MCV 71.5 fl (80-96) L 07/17/20 06:58 MCHC 31.7 g/dl (32.0-36.0) L 07/17/20 06:58 RDW 15.0 % (11.6-15.6) 07/17/20 06:58 Plt Count 266 K/MM3 (134-434) 07/17/20 06:58 MPV 9.3 fl (7.5-11.1) 07/17/20 06:58 CMP Sodium 137 mmol/L (136-145) 07/17/20 06:58 Potassium 3.9 mmol/L (3.5-5.1) 07/17/20 06:58 Chloride 102 mmol/L (98-107) 07/17/20 06:58 Carbon Dioxide 25 mmol/L (21-32) 07/17/20 06:58 Anion Gap 10 MMOL/L (8-16) 07/17/20 06:58 BUN 11.3 mg/dL (7-18) 07/17/20 06:58 Creatinine 0.5 mg/dL (0.55-1.3) L 07/17/20 06:58 Calcium 8.8 mg/dL (8.5-10.1) 07/17/20 06:58 Total Bilirubin 0.4 mg/dL (0.2-1) 07/17/20 06:58 AST 15 U/L (15-37) 07/17/20 06:58 ALT 27 U/L (13-61) 07/17/20 06:58 Alkaline Phosphatase 67 U/L (45-117) 07/17/20 06:58 Total Protein 6.8 g/dl (6.4-8.2) 07/17/20 06:58 Albumin 3.5 g/dl (3.4-5.0) 07/17/20 06:58 Active Medications Acetaminophen (Tylenol -) 650 mg PO Q6H PRN PRN Reason: Fever Or Pain Acetaminophen (Ofirmev Injection -) 1,000 mg IVPB Q6H PRN PRN Reason: PAIN LEVEL 1-5 Stop: 07/18/20 10:18 Clindamycin Phosphate (Cleocin 1% Topical Solution -) 1 applic TP BID [facility] Enoxaparin Sodium (Lovenox -) 40 mg SQ DAILY [facility] Last Admin: 07/17/20 11:19 Dose: Not Given Documented by: Sodium Chloride (Normal Saline -) 1,000 mls @ 100 mls/hr IV ASDIR [facility] Last Admin: 07/17/20 06:58 Dose: 100 mls/hr Documented by: Insulin Aspart (Novolog Vial Sliding Scale -) 1 vial SQ ACHS [facility]; Protocol Last Admin: 07/17/20 11:30 Dose: Not Given Documented by: Insulin Aspart (Novolog Vial) 5 units SQ TIDAC [facility]; Protocol Last Admin: 07/17/20 11:22 Dose: 5 units Documented by: Insulin Detemir (Levemir Vial) 20 units SQ BID@0700,2200 [facility] ASSESSMENT AND PLAN: 30 F with a PMH of HTN, T2DM, seizure disorder, and asthma who presents with worsening lower abdominal pain x 2 days # Abdominal Pain h/o recent trauma CT negative for perforation, normal LFTs no CVA, no evidence of UTI no fever no WBC pain management IV hydration h/o constipation stool softners, Miralax #Enlarged kidneys has no proteinuria, but glucose, denies urinary symptoms Creat 0.5 Mild DKA resolved uncontrol DM (A1c 13) Possible Yeast Infection HTN Hx Seizure Disorder DVT prophylaxis Nephrology following ID following
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
[2020-07-17] MEDS: CLINDAMYCIN PHOSPHATE 1% TOPICAL SOLUTION 30 ML BOTTLE TP SCH ×2 (16:55→21:17)
[2020-07-17] MEDS: CLINDAMYCIN 300 MG PREMIX IVPB 300 MG/50 ML BAG IVPB SCH ×2 (16:55→17:09)
[2020-07-17] MEDS: INSULIN (LEVEMIR) 100 UNITS/ML UNITS SQ SCH (21:16)
[2020-07-18] MEDS: CLINDAMYCIN 300 MG PREMIX IVPB 300 MG/50 ML BAG IVPB SCH ×2 (01:32→10:28)
[2020-07-18] MEDS: SODIUM CHLORIDE 1,000 ML IV SCH ×2 (05:19→07:55)
[2020-07-18] MEDS: INSULIN (LEVEMIR) 100 UNITS/ML UNITS SQ SCH (06:24)
[2020-07-18] MEDS: INSULIN SLIDING SCALE (NOVOLOG) 1 VIAL SQ SCH ×2 (06:25→11:20)
[2020-07-18] MEDS: INSULIN (NOVOLOG) ASPART 100 UNITS/ML 10ML VIAL SQ SCH ×2 (06:26→11:21)
[2020-07-18] MEDS ORDERED: INSULIN (LEVEMIR) 100 UNITS/ML UNITS SQ SCH (07:47)
[2020-07-18 10:16] VITALS: BP 111/72; PULSE 87; TEMP 98.3
[2020-07-18] MEDS: CLINDAMYCIN PHOSPHATE 1% TOPICAL SOLUTION 30 ML BOTTLE TP SCH (10:29)
[2020-07-18] MEDS: ENOXAPARIN NA (PORCINE) 40 MG/0.4 ML DISP.SYRIN SQ SCH (10:33)
--- NOTE | 2020-07-18 12:00 | DS ---
Physical Exam: SUBJECTIVE: Patient seen and examined OBJECTIVE: Vital Signs Period Temp Pulse Resp BP Sys/Westfall Pulse Ox Last 24 Hr 98.2 F-98.5 F 75-89 18-20 103-139/62-93 93-97 PHYSICAL EXAM GENERAL: Awake, alert, and fully oriented, in no acute distress. HEAD: Normal with no signs of trauma. EYES: Pupils equal, round and reactive to light, sclera anicteric, conjunctiva clear. LUNGS: Breath sounds equal, clear to auscultation bilaterally. No wheezes, and no crackles. No accessory muscle use. HEART: Regular rate and rhythm, normal S1 and S2 ABDOMEN: Obese, Soft, non tender, no CVA tenderness, no rebound tenderness, RLQ area of cellulitis, no tender, no subcut abscess MUSCULOSKELETAL: Normal range of motion at all joints. No bony deformities or tenderness. No CVA tenderness. UPPER EXTREMITIES: 2+ pulses, warm, well-perfused. No cyanosis. No clubbing. No peripheral edema. LOWER EXTREMITIES: 2+ pulses, warm, well-perfused. No calf tenderness. No peripheral edema. NEUROLOGICAL: Cranial nerves II-XII intact. Normal speech. LABS Laboratory Results - last 24 hr 07/17/20 07/17/20 07/17/20 11:26 17:01 21:13 POC Glucometer 277 244 306 07/18/20 07/18/20 06:23 11:25 POC Glucometer 292 266 Laboratory Tests 07/16/20 07/16/20 07/16/20 22:45 22:45 23:19 WBC 10.0 RBC 5.95 H Hgb 13.4 Hct 42.4 MCV 71.3 L MCH 22.5 L MCHC 31.5 L RDW 15.3 Plt Count 303 MPV 9.1 Absolute Neuts (auto) 4.7 Neutrophils % 46.7 Lymphocytes % 44.1 H Monocytes % 7.0 Eosinophils % 1.8 Basophils % 0.4 Nucleated RBC % 0 Sodium Potassium Chloride Carbon Dioxide Anion Gap BUN Creatinine Est GFR (CKD-EPI)AfAm Est GFR (CKD-EPI)NonAf POC Glucometer Random Glucose Hemoglobin A1c % Calcium Phosphorus Magnesium Total Bilirubin AST ALT Alkaline Phosphatase Total Protein Albumin Lipase Urine Color Yellow Urine Appearance Clear Urine pH 5.5 Ur Specific [place] 1.053 H Urine Protein Negative Urine Glucose (UA) 3+ H Urine Ketones Trace H Urine Blood Negative Urine Nitrite Negative Urine Bilirubin Negative Urine Urobilinogen 0.2 Ur Leukocyte Esterase Negative Urine WBC (Auto) 4.2 Urine RBC (Auto) 1.5 Urine Casts (Auto) 0 U Epithel Cells (Auto) 3.4 Urine Bacteria (Auto) 275.1 Urine HCG, Qual Negative 07/16/20 07/17/20 07/17/20 23:19 02:24 06:57 WBC RBC Hgb Hct MCV MCH MCHC RDW Plt Count MPV Absolute Neuts (auto) Neutrophils % Lymphocytes % Monocytes % Eosinophils % Basophils % Nucleated RBC % Sodium 134 L Potassium 4.5 Chloride 98 Carbon Dioxide 26 Anion Gap 10 BUN 12.4 Creatinine 0.9 Est GFR (CKD-EPI)AfAm 99.44 Est GFR (CKD-EPI)NonAf 85.80 POC Glucometer 343 299 Random Glucose 405 H* Hemoglobin A1c % Calcium 9.8 Phosphorus Magnesium Total Bilirubin 0.3 AST 16 ALT 30 Alkaline Phosphatase 90 Total Protein 7.9 Albumin 4.0 Lipase Urine Color Urine Appearance Urine pH Ur Specific [place] Urine Protein Urine Glucose (UA) Urine Ketones Urine Blood Urine Nitrite Urine Bilirubin Urine Urobilinogen Ur Leukocyte Esterase Urine WBC (Auto) Urine RBC (Auto) Urine Casts (Auto) U Epithel Cells (Auto) Urine Bacteria (Auto) Urine HCG, Qual 07/17/20 07/17/20 07/17/20 06:58 06:58 06:58 WBC 9.1 RBC 5.40 H Hgb 12.2 Hct 38.6 MCV 71.5 L MCH 22.7 L MCHC 31.7 L RDW 15.0 Plt Count 266 MPV 9.3 Absolute Neuts (auto) Neutrophils % Lymphocytes % Monocytes % Eosinophils % Basophils % Nucleated RBC % Sodium 137 Potassium 3.9 Chloride 102 Carbon Dioxide 25 Anion Gap 10 BUN 11.3 Creatinine 0.5 L Est GFR (CKD-EPI)AfAm 150.52 Est GFR (CKD-EPI)NonAf 129.87 POC Glucometer Random Glucose 308 H Hemoglobin A1c % 13.2 H Calcium 8.8 Phosphorus 4.4 Magnesium 2.0 Total Bilirubin 0.4 AST 15 ALT 27 Alkaline Phosphatase 67 Total Protein 6.8 Albumin 3.5 Lipase 72 L Urine Color Urine Appearance Urine pH Ur Specific [place] Urine Protein Urine Glucose (UA) Urine Ketones Urine Blood Urine Nitrite Urine Bilirubin Urine Urobilinogen Ur Leukocyte Esterase Urine WBC (Auto) Urine RBC (Auto) Urine Casts (Auto) U Epithel Cells (Auto) Urine Bacteria (Auto) Urine HCG, Qual 07/17/20 07/17/20 07/17/20 11:26 17:01 21:13 WBC RBC Hgb Hct MCV MCH MCHC RDW Plt Count MPV Absolute Neuts (auto) Neutrophils % Lymphocytes % Monocytes % Eosinophils % Basophils % Nucleated RBC % Sodium Potassium Chloride Carbon Dioxide Anion Gap BUN Creatinine Est GFR (CKD-EPI)AfAm Est GFR (CKD-EPI)NonAf POC Glucometer 277 244 306 Random Glucose Hemoglobin A1c % Calcium Phosphorus Magnesium Total Bilirubin AST ALT Alkaline Phosphatase Total Protein Albumin Lipase Urine Color Urine Appearance Urine pH Ur Specific [place] Urine Protein Urine Glucose (UA) Urine Ketones Urine Blood Urine Nitrite Urine Bilirubin Urine Urobilinogen Ur Leukocyte Esterase Urine WBC (Auto) Urine RBC (Auto) Urine Casts (Auto) U Epithel Cells (Auto) Urine Bacteria (Auto) Urine HCG, Qual 07/18/20 07/18/20 06:23 11:25 WBC RBC Hgb Hct MCV MCH MCHC RDW Plt Count MPV Absolute Neuts (auto) Neutrophils % Lymphocytes % Monocytes % Eosinophils % Basophils % Nucleated RBC % Sodium Potassium Chloride Carbon Dioxide Anion Gap BUN Creatinine Est GFR (CKD-EPI)AfAm Est GFR (CKD-EPI)NonAf POC Glucometer 292 266 Random Glucose Hemoglobin A1c % Calcium Phosphorus Magnesium Total Bilirubin AST ALT Alkaline Phosphatase Total Protein Albumin Lipase Urine Color Urine Appearance Urine pH Ur Specific [place] Urine Protein Urine Glucose (UA) Urine Ketones Urine Blood Urine Nitrite Urine Bilirubin Urine Urobilinogen Ur Leukocyte Esterase Urine WBC (Auto) Urine RBC (Auto) Urine Casts (Auto) U Epithel Cells (Auto) Urine Bacteria (Auto) Urine HCG, Qual HOSPITAL COURSE: Pt admitted because of abdominal pain and were found to have elevated blood glucose and cellulitis of lower abdominal wall. CT scan of abdomen was done and showed enlarged liver with fatty infiltration, abnormally appearing kidneys with possible nephrocalcinosis (calcium deposit on kindeys). Pt found to have Hemoglobin A1c of 13.2. Applications Chemist and Infection Disease doctors were consulted. she was started on clindmycin IV then PO for the infection and on insulin to control your blood glucose. Pt symptoms improved by second day and was discharged on insulin with metformin, clindamycin. She was instructed to follow up with reading professor to complete work up for her kidneys and to see her pcp to address her uncontrolled DM. Date of Admission:07/17/20 Date of Discharge: 07/18/20 Minutes to complete discharge: 40 Discharge Summary Problems reviewed: Yes Reason For Visit: HYPERGLYCEMIA DUE TO DIABETES MELLITUS Current Active Problems Diabetes (Chronic) Condition: Improved - Instructions Diet, Activity, Other Instructions: You were admitted because of abdominal pain and were found to have elevated blood glucose and cellulitis ( infection) of lower abdominal wall. CT scan of abdomen was done and showed enlarged liver with fatty infiltration, abnormally appearing kidneys with possible nephrocalcinosis (calcium deposit on kindeys). You were found to have Hemoglobin A1c of 13.2. Applications Chemist and Infection Disease doctors were consulted. You were started on antibiotics for the infection and insulin to control your blood glucose. You need to start taking the following new medications: 1. insulin levimir 35units twice daily 2. insulin Novolog 5 units three times daily with meals (don't take if you're not eating) 2. clindamycin 300mg every 8 hours for 6 days please continue taking the rest of your home medications (keppra and metformin) as instructed Please, schedule a follow up appointment with Applications Chemist to continue work up for your kidneys Please, schedule a follow up with your primary care provider to address diabetes control review your medications and monitor your electrolytes. If you feel worsening of your symptoms please call 911 or come to emergency department Referrals: Argelia Vazquez DO [Primary Care Provider] - Bharti Galvin MD [Staff Physician] - Disposition: HOME - Home Medications Comprehensive Discharge Medication List: Ambulatory Orders levETIRAcetam [Keppra -] 1,500 mg PO Q12H 30 Days #180 tablet 03/08/19 metFORMIN HCL [Metformin HCl ER] 1,000 mg PO BID 03/08/19 Acetaminophen [Tylenol .Regular Strength -] 650 mg PO Q6H PRN tablet 07/18/20 Clindamycin [Cleocin -] 300 mg PO TID 6 Days #18 capsule 07/18/20 Insulin (Levemir) [Levemir Vial] 35 units SQ BID@0700,2200 15 Days #1050 units MDD 70 units 07/18/20 Insulin (Novolog) [Novolog -] 5 units SQ TIDAC 15 Days #225 units 07/18/20 This patient is new to me today: No Emergency Visit: Yes ED Registration Date: 07/17/20 Care time: The patient presented to the Emergency Department on the above date and was hospitalized for further evaluation of their emergent condition. Critical Care patient: No - Discharge Referral Referred to [facility] Med P.C.: No
--- NOTE | 2020-07-18 13:15 | PN ---
Progress Note, Physician History of Present Illness: stable wants to go home - Current Medication List Current Medications: Active Medications Acetaminophen (Tylenol -) 650 mg PO Q6H PRN PRN Reason: Fever Or Pain Clindamycin HCl (Cleocin -) 300 mg PO TID [facility] Last Admin: 07/18/20 13:14 Dose: 300 mg Documented by: Enoxaparin Sodium (Lovenox -) 40 mg SQ DAILY [facility] Last Admin: 07/18/20 10:33 Dose: Not Given Documented by: Sodium Chloride (Normal Saline -) 1,000 mls @ 100 mls/hr IV ASDIR [facility] Last Admin: 07/18/20 07:55 Dose: Not Given Documented by: Insulin Aspart (Novolog Vial Sliding Scale -) 1 vial SQ ACHS [facility]; Protocol Last Admin: 07/18/20 11:20 Dose: 6 units Documented by: Insulin Aspart (Novolog Vial) 5 units SQ TIDAC [facility]; Protocol Last Admin: 07/18/20 11:21 Dose: 5 units Documented by: Insulin Detemir (Levemir Vial) 35 units SQ BID@0700,2200 [facility] - Objective Vital Signs: Vital Signs Temperature 98.3 F 07/18/20 09:00 Pulse Rate 87 07/18/20 09:00 Respiratory Rate 18 07/18/20 09:00 Blood Pressure 111/72 07/18/20 09:00 O2 Sat by Pulse Oximetry (%) 93 L 07/18/20 10:00 Constitutional: Yes: No Distress, Calm, Obese Eyes: Yes: Conjunctiva Clear HENT: Yes: Atraumatic, Normocephalic Neck: Yes: Supple, Trachea Midline Cardiovascular: Yes: Regular Rate and Rhythm Respiratory: Yes: Regular, CTA Bilaterally Gastrointestinal: Yes: Normal Bowel Sounds, Soft Musculoskeletal: Yes: WNL Extremities: Yes: WNL Wound/Incision: Yes: Clean/Dry, Other (tender) Neurological: Yes: Alert, Oriented Psychiatric: Yes: Alert, Oriented Labs: CBC, BMP 07/17/20 06:58 07/17/20 06:58 Assessment/Plan 30 y/o F PMHx HTN, T2DM, asthma presents with abdominal pain, found to be in mild DKA and admitted to med-surg. #DKA (Mild, resolved) #Abdominal Pain #Hx of HTN #Nephrocalcinosis abd abscess plan clinda orally to continue for couple of days monitor for increase of abscess
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
[2020-07-18] MEDS ORDERED: CLINDAMYCIN HCL 150 MG CAPSULE (FP) PO SCH (14:00)
== END 2020-07-18 15:04 | disposition home or self-care (01) | DRG 420 ==
LOC: JER 21:16 → JERBED 07-17 03:53 → J5S 07-17 06:40
PROVIDERS: ADMIT Internal Medicine; ATTEND Student in an Organized Health Care Education/Training Program
DX: E11.65 Type 2 diabetes mellitus with hyperglycemia (principal); I10 Essential (primary) hypertension; E66.9 Obesity, unspecified; Z68.39 Body mass index [BMI] 39.0-39.9, adult; B37.3 Candidiasis of vulva and vagina; L03.311 Cellulitis of abdominal wall; K76.0 Fatty (change of) liver, not elsewhere classified; E83.59 Other disorders of calcium metabolism; K59.00 Constipation, unspecified
CPT/HCPCS: 36415; 74177-TC; 76775-TC; 80053; 81003; 82962; 83036; 83690; 83735; 84100; 84703; 85025; 85027; 87086; 93005; 93010; 99285-25; Q9967; U0003

== ENCOUNTER 2020-12-31 16:03 | Emergency (ER) | payer OTHER ==
[2020-12-31 16:35] VITALS: TEMP 98.4; BMI 42.5
[2020-12-31] MEDS ORDERED: LACTATED RINGERS SOLUTION 1000 ML INFUS.BAG IV ONE (17:25)
[2020-12-31] MEDS ORDERED: ACETAMINOPHEN 1000 MG/100 ML VIAL (NON FORMULARY) IVPB ONE (17:25)
[2020-12-31] MEDS ORDERED: ACETAMINOPHEN INJECTION 100 ML IVPB ONE (18:09)
[2020-12-31 18:27] LABS: BASO % 0.4 % (0-2.0); EOS % 1.2 % (0-4.5); HEMATOCRIT 37.7 % (32.4-45.2); HEMOGLOBIN 12.4 GM/dL (10.7-15.3); LYMPH % 29.3 % (8-40); MCH 23.4 pg (25.7-33.7); MCHC 32.9 g/dl (32.0-36.0); MEAN CELL VOLUME 71.2 fl (80-96); MEAN PLT VOLUME 8.9 fl (7.5-11.1); MONO % 7.5 % (3.8-10.2); NEUT % 61.6 % (42.8-82.8); PLATELET COUNT 309 K/MM3 (134-434); RDW 15.5 % (11.6-15.6); WHITE BLOOD COUNT 11.8 K/mm3 (4.0-10.0)
[2020-12-31 18:31] LABS: PH,URINE 5.5 (5.0-8.0); URINE APPEARANCE CLEAR; URINE BILIRUBIN NEGATIVE (NEGATIVE); URINE COLOR YELLOW; URINE GLUCOSE (UA) 3+ (NEGATIVE); URINE KETONE 2+ (NEGATIVE); URINE LEUK ESTERASE NEGATIVE (NEGATIVE); URINE NITRITE NEGATIVE (NEGATIVE); URINE PROTEIN NEGATIVE (NEGATIVE); URINE UROBILINOGEN 0.2 mg/dL (0.2-1.0)
[2020-12-31 18:34] LABS: HCG,QUALITATIVE URINE Negative
[2020-12-31 18:44] LABS: POTASSIUM 4.2 mmol/L (3.5-5.1)
[2020-12-31 18:47] LABS: CALCIUM 8.8 mg/dL (8.5-10.1)
[2020-12-31 18:48] LABS: ALBUMIN 3.5 g/dl (3.4-5.0); BLOOD UREA NITROGEN 11.7 mg/dL (7-18); MAGNESIUM 2.1 mg/dL (1.8-2.4)
[2020-12-31 18:51] LABS: CREATININE 0.7 mg/dL (0.55-1.3)
[2020-12-31 18:53] LABS: BILIRUBIN,TOTAL 0.5 mg/dL (0.2-1); TOT PROT 7.1 g/dl (6.4-8.2)
[2020-12-31] MEDS ORDERED: MIDAZOLAM HCL 2 MG/2 ML SINGLE DOSE VIAL IVPUSH ONE (19:06)
[2020-12-31] MEDS ORDERED: MIDAZOLAM HCL 2 MG/2 ML SINGLE DOSE VIAL ONE (19:16)
[2020-12-31 19:25] LABS: VENOUS BASE EXCESS -3.6 mmol/L (-2-2); VENOUS O2 SATURATION 75.6 % (70-80); VENOUS PCO2 42.2 mmHg (38-52); VENOUS PH 7.337 (7.310-7.410)
[2020-12-31] MEDS ORDERED: levETIRAcetam 500 MG/5 ML INJECTION VIAL IVPB ONE ×2 (19:48→20:37)
[2020-12-31] MEDS ORDERED: SODIUM CHLORIDE 1,000 ML IV STA (20:13)
[2020-12-31] MEDS ORDERED: AZTREONAM 2 GM in DEXTROSE 5%-WATER 100 ML IVPB ONE (20:27)
[2020-12-31] MEDS ORDERED: VANCOMYCIN 1,000 MG in DEXTROSE 5%-WATER - 250 ML IVPB ONE (20:27)
[2020-12-31] MEDS ORDERED: AZTREONAM 1 GM VIAL (RESTRICTED TO ID) ONE ×2 (20:38→20:46)
[2020-12-31] MEDS ORDERED: VANCOMYCIN 1 GRAM (PRE-DOCKED) 1,000 MG/250 ML BAG IVPB ONE (23:04)
[2020-12-31 23:30] VITALS: BP 109/67; PULSE 101
== END 2021-01-01 01:15 | disposition left against medical advice (07) ==
LOC: JER 16:03
PROC: 0H9JXZZ Drainage of Left Upper Leg Skin, External Approach (ICD-10-PCS; principal; 2020-12-31)
PROC: 3E0333Z Introduction of Anti-inflammatory into Peripheral Vein, Percutaneous Approach (ICD-10-PCS; 2020-12-31)
PROC: 3E03329 Introduction of Other Anti-infective into Peripheral Vein, Percutaneous Approach (ICD-10-PCS; 2020-12-31)
PROC: 3E033NZ Introduction of Analgesics, Hypnotics, Sedatives into Peripheral Vein, Percutaneous Approach (ICD-10-PCS; 2020-12-31)
PROC: 3E033GC Introduction of Other Therapeutic Substance into Peripheral Vein, Percutaneous Approach (ICD-10-PCS; 2020-12-31)
PROC: 3E033GC Introduction of Other Therapeutic Substance into Peripheral Vein, Percutaneous Approach (ICD-10-PCS; 2020-12-31)
PROC: 3E03329 Introduction of Other Anti-infective into Peripheral Vein, Percutaneous Approach (ICD-10-PCS; 2020-12-31)
PROC: 3E0337Z Introduction of Electrolytic and Water Balance Substance into Peripheral Vein, Percutaneous Approach (ICD-10-PCS; 2020-12-31)
DX: L02.416 Cutaneous abscess of left lower limb (principal)
CPT/HCPCS: 36415; 71045-TC-FY; 72193-TC; 73701-TC-RT; 80053; 81003; 82010; 82803; 83605; 83735; 84703; 85025; 87040; 87086; 99285-25; J0131; Q9967

== ENCOUNTER 2021-04-29 18:04 | Emergency (ER) | payer OTHER ==
[2021-04-29 18:31] VITALS: BMI 39.4
[2021-04-29] MEDS ORDERED: levETIRAcetam 500 MG/5 ML INJECTION VIAL IVPB ONE ×2 (19:42→19:51)
[2021-04-29 19:50] LABS: BASO % 0.4 % (0-2.0); EOS % 1.4 % (0-4.5); HEMATOCRIT 39.4 % (32.4-45.2); HEMOGLOBIN 12.8 GM/dL (10.7-15.3); LYMPH % 41.1 % (8-40); MCH 23.1 pg (25.7-33.7); MCHC 32.3 g/dl (32.0-36.0); MEAN CELL VOLUME 71.5 fl (80-96); MEAN PLT VOLUME 9.4 fl (7.5-11.1); MONO % 6.7 % (3.8-10.2); NEUT % 50.4 % (42.8-82.8); PLATELET COUNT 269 K/MM3 (134-434); RBC 5.51 M/mm3 (3.60-5.2); RDW 15.1 % (11.6-15.6)
[2021-04-29 20:10] LABS: CHLORIDE 102 mmol/L (98-107); SODIUM 135 mmol/L (136-145)
[2021-04-29 20:13] LABS: ALBUMIN 3.7 g/dl (3.4-5.0); ANION GAP 9 MMOL/L (8-16); BLOOD UREA NITROGEN 12.3 mg/dL (7-18); CALCIUM 8.7 mg/dL (8.5-10.1); CO2 24 mmol/L (21-32); GLUCOSE,RANDOM 364 mg/dL (74-106)
[2021-04-29 20:17] LABS: CREATININE 0.7 mg/dL (0.55-1.3); SGOT/AST 19 U/L (15-37); SGPT/ALT 29 U/L (13-61)
[2021-04-29 20:19] LABS: ALK PHOS 79 U/L (45-117); BILIRUBIN,TOTAL 0.6 mg/dL (0.2-1); TOT PROT 7.4 g/dl (6.4-8.2)
[2021-04-29] MEDS ORDERED: SODIUM CHLORIDE 0.9% 500 ML INFUS.BAG IV ONE (20:28)
[2021-04-29 22:42] LABS: PH,URINE 5.5 (5.0-8.0); URINE APPEARANCE CLEAR; URINE BILIRUBIN NEGATIVE (NEGATIVE); URINE COLOR YELLOW; URINE GLUCOSE (UA) 3+ (NEGATIVE); URINE KETONE 1+ (NEGATIVE); URINE LEUK ESTERASE NEGATIVE (NEGATIVE); URINE NITRITE NEGATIVE (NEGATIVE); URINE PROTEIN NEGATIVE (NEGATIVE)
[2021-04-29 23:22] VITALS: BP 137/76; PULSE 84; TEMP 98.7
== END 2021-04-30 | disposition home or self-care (01) ==
LOC: JER 18:04
PROC: 3E0333Z Introduction of Anti-inflammatory into Peripheral Vein, Percutaneous Approach (ICD-10-PCS; principal; 2021-04-29)
DX: R56.9 Unspecified convulsions (principal)
CPT/HCPCS: 36415; 70450-TC; 71045-TC-FY; 80053; 80177; 81003; 82010; 82550; 82962; 83735; 84484; 84703; 85025; 87077; 87086; 93005; 93010; 99285-25

== ENCOUNTER 2024-03-28 13:21 | Emergency (ER) | payer OTHER ==
[2024-03-28] MEDS ORDERED: DEXTROSE 50%-WATER 25 GM/50 ML DISP.SYRIN ONE (14:14)
[2024-03-28] MEDS: SODIUM CHLORIDE 0.9% 500 ML INFUS.BAG IV ONE (14:18)
[2024-03-28] MEDS: DEXTROSE 50%-WATER - 25 GM/50 ML VIAL IVPUSH ONE (14:18)
[2024-03-28 14:22] LABS: BASO % 0.7 % (0-2.0); EOS % 0.8 % (0-4.5); HEMATOCRIT 32.8 % (32.4-45.2); HEMOGLOBIN 10.5 GM/dL (10.7-15.3); LYMPH % 30.5 % (8-40); MCH 22.4 pg (25.7-33.7); MEAN CELL VOLUME 69.8 fl (80-96); MEAN PLT VOLUME 8.2 fl (7.5-11.1); PLATELET COUNT 277 10^3/uL (134-434); RDW 16.3 % (11.6-15.6); WHITE BLOOD COUNT 10.5 K/mm3 (4.0-10.0)
[2024-03-28 14:35] VITALS: TEMP 98.8; BMI 39.4
[2024-03-28 14:42] LABS: CHLORIDE 109 mmol/L (98-107); SODIUM 140 mmol/L (136-145)
[2024-03-28 14:44] LABS: ANION GAP 3 mmol/L (4-13); CALCIUM 8.9 mg/dL (8.5-10.1); CO2 27 mmol/L (21-32)
[2024-03-28 14:45] LABS: ALBUMIN 3.6 g/dl (3.4-5.0); BLOOD UREA NITROGEN 11.8 mg/dL (7-18)
[2024-03-28 14:48] LABS: CREATININE 0.4 mg/dL (0.55-1.3); SGOT/AST 14 U/L (15-37); SGPT/ALT 27 U/L (13-61)
[2024-03-28 14:49] LABS: BILIRUBIN,TOTAL 0.4 mg/dL (0.2-1); TOT PROT 7.3 g/dl (6.4-8.2)
[2024-03-28 14:50] LABS: ALK PHOS 47 U/L (45-117)
[2024-03-28 15:08] LABS: GLUCOSE,RANDOM 44 mg/dL (74-106)
[2024-03-28 20:35] VITALS: BP 139/96; PULSE 86; RESP 16
== END 2024-03-28 20:36 | disposition home or self-care (01) ==
LOC: JER 13:21
PROC: 3E0337Z Introduction of Electrolytic and Water Balance Substance into Peripheral Vein, Percutaneous Approach (ICD-10-PCS; principal; 2024-03-28)
DX: R56.9 Unspecified convulsions (principal); E11.649 Type 2 diabetes mellitus with hypoglycemia without coma
CPT/HCPCS: 36415; 80053; 82962; 84443; 84703; 85025; 93005; 93010; 99284-25